=== PATIENT | female | born 1955 ===

== ENCOUNTER 2017-12-11 09:32 | Observation (INO) | payer MEDICAID, OTHER ==
--- NOTE | 2017-12-11 11:04 | ED PDOC ---
HPI: Chest Pain Time Seen by Provider: 12/11/17 09:57 Chief Complaint (Nursing): Chest Pain History Per: Patient Onset/Duration Of Symptoms: Days (2) Current Symptoms Are (Timing): Still Present Severity: Mild Quality: Tightness Associated Symptoms: Dyspnea Alleviating Factors: None Additional Complaint(s): Chest tightness assoc with SOB worse over past 2 days. Denies fever or cough. Pt also very depressed due to recent of her mother. Past Medical History Vital Signs: Last Vital Signs Temp 97 F L 12/11/17 13:08 Pulse 89 12/11/17 13:49 Resp 19 12/11/17 13:49 BP 150/96 H 12/11/17 13:49 Pulse Ox 98 12/11/17 13:49 - Medical History PMH: Asthma, CAD, COPD - Family History Family History: States: Unknown Family Hx - Allergies Allergies/Adverse Reactions: Allergies Allergy/AdvReac Type Severity Reaction Status Date / Time Penicillins Allergy ANAPHYLAXIS Verified 12/11/17 10:05 Review of Systems ROS Statement: Except As Marked, All Systems Reviewed And Found Negative Cardiovascular: Positive for: Chest Pain Respiratory: Positive for: Shortness of Breath Psych: Positive for: Depression Physical Exam - Reviewed Nursing Documentation Reviewed: Yes Vital Signs Reviewed: Yes - Physical Exam Appears: Positive for: Non-toxic, No Acute Distress Head Exam: Positive for: ATRAUMATIC, NORMAL INSPECTION, NORMOCEPHALIC Skin: Positive for: Normal Color, Warm, DRY Eye Exam: Positive for: EOMI, Normal appearance, PERRL ENT: Positive for: Normal ENT Inspection Neck: Positive for: Normal, Painless ROM Cardiovascular/Chest: Positive for: Regular Rate, Rhythm Respiratory: Positive for: CNT, Normal Breath Sounds Gastrointestinal/Abdominal: Positive for: Normal Exam, Soft Back: Positive for: Normal Inspection Extremity: Positive for: Normal ROM Neurologic/Psych: Positive for: Alert, Oriented, Mood/Affect (Tearful). Negative for: Motor/Sensory Deficits - Laboratory Results Result Diagrams: 12/11/17 11:45 12/11/17 11:45 - ECG O2 Sat by Pulse Oximetry: 97 Disposition - Clinical Impression Clinical Impression: Chest pain - Patient ED Disposition Is Patient to be Admitted: Yes - Disposition Disposition Time: 15:01 Condition: FAIR Forms: [employer] (Vietnamese) - Pt Status Changed To: Hospital Disposition Of: Observation - POA Present On Arrival: None
--- NOTE | 2017-12-11 11:49 | RAD ---
HISTORY: Chest pain COMPARISON: No prior. TECHNIQUE: Chest PA and lateral FINDINGS: LUNGS: No focal airspace opacity. PLEURA: No significant pleural effusion identified. No pneumothorax apparent. CARDIOVASCULAR: Normal. OSSEOUS STRUCTURES: Degenerative changes. VISUALIZED UPPER ABDOMEN: Upper abdomen is suboptimally evaluated. OTHER FINDINGS: None. IMPRESSION: No focal airspace opacity. Please note that chest radiographs have low sensitivity for small pulmonary nodules. If indicated, chest CT should be obtained.
[2017-12-11 11:59] LABS: BASO # 0.1 K/uL (0.0-0.2); BASO % 1.1 % (0.0-2.0); EOS # 0.3 K/uL (0.0-0.7); EOS % 4.8 % (0.0-4.0); HEMOGLOBIN 11.9 g/dL (12.0-16.0); LYMPH # 2.3 K/uL (1.0-4.3); LYMPH % 32.3 % (20.0-40.0); MEAN CELL VOLUME 84.6 fl (81.0-99.0); MEAN CORPUSCULAR HEMOGLOBIN 27.1 pg (27.0-31.0); MEAN PLATELET VOLUME 9.4 fl (7.2-11.7); MONO # 0.5 K/uL (0.0-0.8); MONO % 6.4 % (0.0-10.0); NEUT # 3.9 K/uL (1.8-7.0); NEUT % 55.4 % (50.0-75.0); NRBC % 0.1 % (0.0-0.0); RBC 4.4 Mil/uL (3.80-5.20); RED CELL DISTRIBUTION WIDTH 15.9 % (11.5-14.5); WHITE BLOOD COUNT 7.1 K/uL (4.8-10.8)
[2017-12-11 12:03] LABS: ALB/GLOB RATIO 1.3 (1.0-2.1); ALBUMIN 4.1 g/dL (3.5-5.0); ALT/SGPT 22 U/L (9-52); AST/SGOT 22 U/L (14-36); BLOOD UREA NITROGEN 18 mg/dl (7-17); CALCIUM 9.5 mg/dL (8.4-10.2); GFR AFRICAN-AMERICAN > 60; GFR NON-AFRICAN AMERICAN 56
[2017-12-11 22:54] VITALS: RESP 18
[2017-12-12] MEDS ORDERED: Levalbuterol 0.63 MG/3 ML Inhal Soln UD IH PRN (00:24)
[2017-12-12] MEDS ORDERED: Apap-Butalbital-Caffeine 325-50-40mg Tab PO PRN (00:24)
--- NOTE | 2017-12-12 00:41 | CARD ---
APPROVED REPORT Date of service: 12/12/2017 EKG Measurement Heart [id number] <Conclusion> Normal sinus rhythm Normal ECG
[2017-12-12] MEDS: Albuterol-Ipratrop 3 mg / 0.5 (3 ml) UD INH SCH ×3 (01:25→13:37)
[2017-12-12] MEDS: MethylPREDNISolone 40 mg Vial IVP SCH ×2 (02:00→09:28)
[2017-12-12 05:25] VITALS: O2SAT 95
[2017-12-12 05:29] LABS: HEMOGLOBIN 12.5 g/dL (12.0-16.0); MEAN CELL VOLUME 84.9 fl (81.0-99.0); MEAN CORPUSCULAR HEMOGLOBIN 27.6 pg (27.0-31.0); MEAN CORPUSCULAR HGB CONC 32.5 g/dL (33.0-37.0); RBC 4.53 Mil/uL (3.80-5.20); RED CELL DISTRIBUTION WIDTH 16.1 % (11.5-14.5); WHITE BLOOD COUNT 8.5 K/uL (4.8-10.8)
[2017-12-12 05:37] LABS: BLOOD UREA NITROGEN 19 mg/dl (7-17); CALCIUM 9.3 mg/dL (8.4-10.2); GFR AFRICAN-AMERICAN > 60; GFR NON-AFRICAN AMERICAN > 60; HDL CHOLESTEROL 33 MG/DL (30-70)
[2017-12-12 05:42] LABS: ABG ALLEN TEST YES; ARTERIAL BLOOD GAS HCO3 24.5 mmol/L (21-28); ARTERIAL BLOOD GAS HEMOGLOBIN 13.1 g/dL (11.7-17.4); ARTERIAL BLOOD GAS O2 CONTENT 17.3 ML/dL (15-23); ARTERIAL BLOOD GAS O2 SAT 96.3 % (95-98); ARTERIAL BLOOD GAS PCO2 42 mm/Hg (35-45); ARTERIAL BLOOD GAS PH 7.38 (7.35-7.45); ARTERIAL BLOOD GAS PO2 76 mm/Hg (80-100); ARTERIAL BLOOD GAS TCO2 26.1 mmol/L (22-28)
[2017-12-12 05:48] LABS: LDL CHOLESTEROL 39 mg/dL (0-129)
[2017-12-12] MEDS ORDERED: Pneumococcal 23-Valent Vaccine IM ONE (06:30)
[2017-12-12] MEDS ORDERED: Levothyroxine 100 MCG TAB PO SCH (06:30)
[2017-12-12 07:28] LABS: T4 7.36 ug/dl (5.5-11.0)
[2017-12-12 08:23] VITALS: TEMP 97.3
--- NOTE | 2017-12-12 08:51 | CP.PCM.CON ---
History of Present Illness - History of Present Illness History of Present Illness: This 62-year-old female was hospitalized after coming to the emergency room complaining of left pectoral ache. She reports that this has been going on off and on since 1992. She has had 3 coronary angiograms none of them have required any intervention. She was told that her "heart arteries"did not have any blockages. The patient also reports that she used to be a smoker until 4 years back and has effort related dyspnea off and on. She uses broncho-dilators. She also reports being a hypertensive and diabetic and reports chronic sensation of fatigue. This chest discomfort that brought her to the hospital has been going on off and on for almost 3-4 days. It is not connected to any physical activities and does not radiate down her arm or into her jaw. It is not accompanied by any nausea sensation of nausea vomiting or perspiration. Physical examination shows a overweight middle aged female who is comfortable at rest. She breathes at 16 breaths per minute. As a heart rate of 78 bpm regular. Her blood pressure was 138/74 mmHg. Her jugular venous pressure was not elevated and there was no edema over lower extremities. There was no calf tenderness and Homans sign was negative. Pedal pulses were well felt there were no carotid bruits. Her extremities were warm and nailbeds were pink. There was no central or peripheral cyanosis. There was no clubbing. There was a vague sense of tenderness in the left pectoral area. Her apex was not palpable. First and second heart sounds were normal. There was no murmur or gallop. There were no rales. Her abdomen was soft and liver and spleen are not palpable. Her electro-cardial gram showed sinus rhythm with a normal EKG pattern. Her lab data showed normal troponin levels times to 8 hours apart. Her BUN/creatinine were noted. Her serum cholesterol and LDL were noted. The patient had hypertriglyceridemia for which she is taking a fiber rate. Impression: Atypical chest pain with no evidence of acute coronary syndrome. The patient has had 3 coronary angiograms the last one being last year which did not find any significant coronary stenosis. The patient is stable from cardiovascular point of view and can be treated as an outpatient. Also, the patient has been taking numerous medications this polypharmacy may not serve her well in the long run. Past Patient History - Past Medical History & Family History Past Medical History?: Yes - Past Social History Smoking Status: Former Smoker - CARDIAC Hx Cardiac Disorders: Yes Hx Angina: Yes Hx Hypertension: Yes - PULMONARY Hx Respiratory Disorders: Yes Hx Asthma: Yes Hx Chronic Obstructive Pulmonary Disease (COPD): Yes - NEUROLOGICAL Hx Neurological Disorder: No - HEENT Hx HEENT Problems: No - RENAL Hx Chronic Kidney Disease: No - ENDOCRINE/METABOLIC Hx Endocrine Disorders: Yes Hx Diabetes Mellitus Type 2: Yes Hx Hypothyroidism: Yes - HEMATOLOGICAL/ONCOLOGICAL Hx Blood Disorders: No - INTEGUMENTARY Hx Dermatological Problems: No - MUSCULOSKELETAL/RHEUMATOLOGICAL Hx Musculoskeletal Disorders: No Hx Falls: No - GASTROINTESTINAL Hx Gastrointestinal Disorders: No - GENITOURINARY/GYNECOLOGICAL Hx Genitourinary Disorders: No - PSYCHIATRIC Hx Psychophysiologic Disorder: Yes Hx Anxiety: Yes Hx Depression: Yes Hx Substance Use: No - SURGICAL HISTORY Hx Surgeries: Yes Hx Tubal Ligation: Yes Other/Comment: b/l cyst removal from breasts - ANESTHESIA Hx Anesthesia: Yes Hx Anesthesia Reactions: No Hx Malignant Hyperthermia: No Has any member of the family had a problem w/ anesthesia?: No Meds Allergies/Adverse Reactions: Allergies Allergy/AdvReac Type Severity Reaction Status Date / Time Penicillins Allergy ANAPHYLAXIS Verified 12/11/17 10:05 - Medications Medications: Current Medications Acetaminophen/Butalbital/Caffeine (Fioricet) 1 tab PO BID PRN PRN Reason: Migraine headache Albuterol/Ipratropium (Duoneb 3 Mg/0.5 Mg (3 Ml) Ud) 3 ml INH RQ6 [facility] Last Admin: 12/12/17 08:04 Dose: 3 ml Clonazepam (Klonopin) 0.5 mg PO Q8 [facility] Last Admin: 12/12/17 02:00 Dose: 0.5 mg Clonidine HCl (Catapres) 0.3 mg PO DAILY [facility] Clopidogrel Bisulfate (Plavix) 75 mg PO DAILY [facility] Doxepin HCl (Sinequan) 50 mg PO HS [facility] Last Admin: 12/12/17 02:00 Dose: 50 mg Famotidine (Pepcid) 40 mg PO HS [facility] Last Admin: 12/12/17 01:00 Dose: 40 mg Fluticasone Propionate (Flonase) 1 spr RAYMOND BID PRN PRN Reason: Nasal congestion Gabapentin (Neurontin) 400 mg PO QAM [facility] Gabapentin (Neurontin) 800 mg PO HS [facility] Last Admin: 12/12/17 01:00 Dose: 800 mg Gemfibrozil (Lopid) 600 mg PO DAILY [facility] Isosorbide Mononitrate (Imdur Er) 30 mg PO DAILY [facility] Levalbuterol HCl (Xopenex) 0.63 mg IH RQ8 PRN PRN Reason: Shortness of Breath Levothyroxine Sodium (Synthroid) 100 mcg PO DAILY@0630 [facility] Last Admin: 12/12/17 07:32 Dose: 100 mcg Loratadine (Claritin) 10 mg PO DAILY [facility] Losartan Potassium (Cozaar) 100 mg PO DAILY [facility] Methylprednisolone (Solu-Medrol) 30 mg IVP Q8 [facility] Last Admin: 12/12/17 02:00 Dose: 30 mg Montelukast Sodium (Singulair) 10 mg PO HS [facility] Last Admin: 12/12/17 01:00 Dose: 10 mg Qloyd-4-Yyve Ethyl Esters (Lovaza) 1 gm PO DAILY [facility] Quetiapine Fumarate (Seroquel) 100 mg PO HS [facility] Last Admin: 12/12/17 02:37 Dose: Not Given Fluticasone/Salmeterol (Advair Diskus 250/50) 1 puff IH Q12 [facility] Sertraline HCl (Zoloft) 50 mg PO QAM [facility] Sucralfate (Carafate Tab) 1 gm PO TID [facility] Results - Vital Signs Recent Vital Signs: Last Vital Signs Temp 97.3 F L 12/12/17 08:22 Pulse 83 12/12/17 08:22 Resp 18 12/12/17 08:22 BP 124/85 12/12/17 08:22 Pulse Ox 95 12/12/17 08:22 - Labs Result Diagrams: 12/12/17 04:20 12/12/17 04:20 Labs: Laboratory Results - last 24 hr 12/11/17 12/11/17 12/12/17 11:45 11:45 04:20 WBC 7.1 8.5 RBC 4.40 4.53 Hgb 11.9 L 12.5 Hct 37.2 38.5 MCV 84.6 84.9 MCH 27.1 27.6 MCHC 32.0 L 32.5 L RDW 15.9 H 16.1 H Plt Count 294 295 MPV 9.4 Neut % (Auto) 55.4 Lymph % (Auto) 32.3 Granite % (Auto) 6.4 Eos % (Auto) 4.8 H Baso % (Auto) 1.1 Neut # (Auto) 3.9 Lymph # (Auto) 2.3 Granite # (Auto) 0.5 Eos # (Auto) 0.3 Baso # (Auto) 0.1 pCO2 pO2 HCO3 ABG pH ABG Total CO2 ABG O2 Saturation ABG O2 Content ABG Base Excess ABG Hemoglobin ABG Carboxyhemoglobin POC ABG HHb (Measured) ABG Methemoglobin ABG O2 Capacity Med Test A-a O2 Difference Hgb O2 Saturation FiO2 Sodium 143 Potassium 4.4 Chloride 107 Carbon Dioxide 24 Anion Gap 16 BUN 18 H Creatinine 1.0 Est GFR ( Amer) > 60 Est GFR (Non-Af Amer) 56 POC Glucose (mg/dL) Random Glucose 96 Calcium 9.5 Total Bilirubin 0.3 AST 22 ALT 22 Alkaline Phosphatase 61 Troponin I < 0.0120 Total Protein 7.3 Albumin 4.1 Globulin 3.2 Albumin/Globulin Ratio 1.3 Triglycerides Cholesterol LDL Cholesterol Direct HDL Cholesterol Thyroxine (T4) TSH 3rd Generation 12/12/17 12/12/17 12/12/17 04:20 05:18 05:30 WBC RBC Hgb Hct MCV MCH MCHC RDW Plt Count MPV Neut % (Auto) Lymph % (Auto) Granite % (Auto) Eos % (Auto) Baso % (Auto) Neut # (Auto) Lymph # (Auto) Granite # (Auto) Eos # (Auto) Baso # (Auto) pCO2 42 pO2 76 L HCO3 24.5 ABG pH 7.38 ABG Total CO2 26.1 ABG O2 Saturation 96.3 ABG O2 Content 17.3 ABG Base Excess -0.4 ABG Hemoglobin 13.1 ABG Carboxyhemoglobin 1.3 POC ABG HHb (Measured) 3.6 ABG Methemoglobin 1.4 ABG O2 Capacity 18.0 Med Test Yes A-a O2 Difference 71.0 Hgb O2 Saturation 93.8 L FiO2 28.0 Sodium 141 Potassium 4.6 Chloride 106 Carbon Dioxide 23 Anion Gap 17 BUN 19 H Creatinine 0.9 Est GFR ( Amer) > 60 Est GFR (Non-Af Amer) > 60 POC Glucose (mg/dL) 129 H Random Glucose 116 H Calcium 9.3 Total Bilirubin AST ALT Alkaline Phosphatase Troponin I < 0.0120 Total Protein Albumin Globulin Albumin/Globulin Ratio Triglycerides 295 H Cholesterol 178 LDL Cholesterol Direct 39 HDL Cholesterol 33 Thyroxine (T4) 7.36 TSH 3rd Generation 1.57
[2017-12-12] MEDS ORDERED: Fluticasone-Salmeterol 250-50mcg Diskus IH SCH (09:00)
[2017-12-12] MEDS ORDERED: Omega-3-Acid Ethyl Esters 1 GM Cap PO SCH (09:00)
[2017-12-12 09:36] VITALS: BP 132/86; PULSE 98
--- NOTE | 2017-12-12 15:35 | CP.PCM.HP ---
History of Present Illness - History of Present Illness History of Present Illness: 62 y/o F, Hx of Asthma, CAD, HTN, came to [facility], [place] to be evaluated for CP, left pectoral that began 3 days [employer] with no relief, Pain was intermittent, moderate intensity 7:10, ache, tightness type, non radiated. Worsening symptoms: Dyspnea on and off, denied cough Aggravated factor: movements/exercise. Pt denied: fever, chills, n/v/d, abdominal pain, urinary symptoms, tachycardia , syncope, numbness, sick contact, recent travel out of [facility]. CXR: No focal airspace opacity. Echo: LVEF 70% EKG: Normal sinus rhythm Present on Admission - Present on Admission Any Indicators Present on Admission: No Review of Systems - Constitutional Constitutional: Other (negative) - EENT Eyes: Requires Corrective Lenses Ears: Other (negative) Nose/Mouth/Throat: Other (negative) - Cardiovascular Cardiovascular: Chest Pain - Respiratory Respiratory: Dyspnea. absent: Cough - Gastrointestinal Gastrointestinal: Other (negative) - Genitourinary Genitourinary: Other (negative) - Musculoskeletal Musculoskeletal: Other (negative) - Integumentary Integumentary: Other (negative) - Neurological Neurological: Other (negative) - Psychiatric Psychiatric: Other (negative) - Endocrine Endocrine: Other (negative) - Hematologic/Lymphatic Hematologic: Other (negative) Past Patient History - Past Medical History & Family History Past Medical History?: Yes Pertinent Family History: Unknown - Past Social History Smoking Status: Former Smoker Alcohol: None Drugs: Denies - CARDIAC Hx Cardiac Disorders: Yes Hx Angina: Yes Hx Hypertension: Yes - PULMONARY Hx Respiratory Disorders: Yes Hx Asthma: Yes Hx Chronic Obstructive Pulmonary Disease (COPD): Yes - NEUROLOGICAL Hx Neurological Disorder: No - HEENT Hx HEENT Problems: No - RENAL Hx Chronic Kidney Disease: No - ENDOCRINE/METABOLIC Hx Endocrine Disorders: Yes Hx Diabetes Mellitus Type 2: Yes Hx Hypothyroidism: Yes - HEMATOLOGICAL/ONCOLOGICAL Hx Blood Disorders: No - INTEGUMENTARY Hx Dermatological Problems: No - MUSCULOSKELETAL/RHEUMATOLOGICAL Hx Musculoskeletal Disorders: No Hx Falls: No - GASTROINTESTINAL Hx Gastrointestinal Disorders: No - GENITOURINARY/GYNECOLOGICAL Hx Genitourinary Disorders: No - PSYCHIATRIC Hx Psychophysiologic Disorder: Yes Hx Anxiety: Yes Hx Depression: Yes Hx Substance Use: No - SURGICAL HISTORY Hx Surgeries: Yes Hx Tubal Ligation: Yes Other/Comment: b/l cyst removal from breasts - ANESTHESIA Hx Anesthesia: Yes Hx Anesthesia Reactions: No Hx Malignant Hyperthermia: No Has any member of the family had a problem w/ anesthesia?: No Meds Allergies/Adverse Reactions: Allergies Allergy/AdvReac Type Severity Reaction Status Date / Time Penicillins Allergy ANAPHYLAXIS Verified 12/11/17 10:05 Physical Exam - Constitutional Appears: No Acute Distress - Head Exam Head Exam: NORMAL INSPECTION - Eye Exam Eye Exam: PERRL - ENT Exam ENT Exam: Normal Exam - Neck Exam Neck exam: Positive for: Normal Inspection - Respiratory Exam Respiratory Exam: Decreased Breath Sounds (b/l) - Cardiovascular Exam Cardiovascular Exam: REGULAR RHYTHM - GI/Abdominal Exam GI & Abdominal Exam: Normal Bowel Sounds, Soft - Extremities Exam Extremities exam: Positive for: normal inspection - Back Exam Back exam: NORMAL INSPECTION - Neurological Exam Neurological exam: Alert, Oriented x3 Additional comments: No motor/sensory deficit. - Psychiatric Exam Psychiatric exam: Depressed - Skin Skin Exam: Warm Results - Vital Signs Recent Vital Signs: Last Vital Signs Temp 97.3 F L 12/12/17 08:22 Pulse 98 H 12/12/17 09:35 Resp 18 12/12/17 08:22 BP 132/86 12/12/17 09:35 Pulse Ox 95 12/12/17 08:22 reviewed Gaye - Labs Result Diagrams: 12/12/17 04:20 12/12/17 04:20 Labs: Laboratory Results - last 24 hr 12/12/17 12/12/17 12/12/17 04:20 04:20 04:20 WBC 8.5 RBC 4.53 Hgb 12.5 Hct 38.5 MCV 84.9 MCH 27.6 MCHC 32.5 L RDW 16.1 H Plt Count 295 pCO2 pO2 HCO3 ABG pH ABG Total CO2 ABG O2 Saturation ABG O2 Content ABG Base Excess ABG Hemoglobin ABG Carboxyhemoglobin POC ABG HHb (Measured) ABG Methemoglobin ABG O2 Capacity Med Test A-a O2 Difference Hgb O2 Saturation FiO2 Sodium 141 Potassium 4.6 Chloride 106 Carbon Dioxide 23 Anion Gap 17 BUN 19 H Creatinine 0.9 Est GFR ( Amer) > 60 Est GFR (Non-Af Amer) > 60 POC Glucose (mg/dL) Random Glucose 116 H Hemoglobin A1c 6.3 Calcium 9.3 Troponin I < 0.0120 Triglycerides 295 H Cholesterol 178 LDL Cholesterol Direct 39 HDL Cholesterol 33 Thyroxine (T4) 7.36 TSH 3rd Generation 1.57 12/12/17 12/12/17 12/12/17 05:18 05:30 10:48 WBC RBC Hgb Hct MCV MCH MCHC RDW Plt Count pCO2 42 pO2 76 L HCO3 24.5 ABG pH 7.38 ABG Total CO2 26.1 ABG O2 Saturation 96.3 ABG O2 Content 17.3 ABG Base Excess -0.4 ABG Hemoglobin 13.1 ABG Carboxyhemoglobin 1.3 POC ABG HHb (Measured) 3.6 ABG Methemoglobin 1.4 ABG O2 Capacity 18.0 Med Test Yes A-a O2 Difference 71.0 Hgb O2 Saturation 93.8 L FiO2 28.0 Sodium Potassium Chloride Carbon Dioxide Anion Gap BUN Creatinine Est GFR ( Amer) Est GFR (Non-Af Amer) POC Glucose (mg/dL) 129 H 205 H Random Glucose Hemoglobin A1c Calcium Troponin I Triglycerides Cholesterol LDL Cholesterol Direct HDL Cholesterol Thyroxine (T4) TSH 3rd Generation 12/12/17 12:27 WBC RBC Hgb Hct MCV MCH MCHC RDW Plt Count pCO2 pO2 HCO3 ABG pH ABG Total CO2 ABG O2 Saturation ABG O2 Content ABG Base Excess ABG Hemoglobin ABG Carboxyhemoglobin POC ABG HHb (Measured) ABG Methemoglobin ABG O2 Capacity Med Test A-a O2 Difference Hgb O2 Saturation FiO2 Sodium Potassium Chloride Carbon Dioxide Anion Gap BUN Creatinine Est GFR ( Amer) Est GFR (Non-Af Amer) POC Glucose (mg/dL) Random Glucose Hemoglobin A1c Calcium Troponin I < 0.0120 Triglycerides Cholesterol LDL Cholesterol Direct HDL Cholesterol Thyroxine (T4) TSH 3rd Generation reviewed J.P. - EKG Data EKG comments: reviewed J.P. - Impressions Impression: ECHO: Reviewed J.P. - Imaging and Cardiology Chest x-ray Status: Report reviewed by me (Gaye) Assessment & Plan (1) Chest pain, atypical Status: Acute (2) Active asthma Status: Acute - Assessment and Plan (Free Text) Plan: Continue Solu-medrol, Duoneb, Singulair, rest of medications, Pt was seen by lifestyle consultant, with impression of CP atypical, and no evidence of acute coronary syndrome, Cardiology clear for discharge and to continue Tx as out Pt. Pt improved and stable to be discharged, see instruction medication sheet, f/ u PMD in a week and f/u with lifestyle consultant. - Date & Time Date: 12/12/17 Time: 12:00
--- NOTE | 2017-12-13 11:24 | CARD ---
APPROVED REPORT Date of service: 12/12/2017 EXAM: Two-dimensional and M-mode echocardiogram with Doppler and color Doppler. Other Information Quality : FairRhythm : Tachycardia Technically limited study due to smoking. INDICATION Chest Pain 2D DIMENSIONS IVSd0.77 (0.7-1.1cm)LVDd4.05 (3.9-5.9cm) LVOT Diameter1.67 (1.8-2.4cm)PWd0.86 (0.7-1.1cm) IVSs1.18 (0.8-1.2cm)LVDs2.24 (2.5-4.0cm) FS (%) 44.6 %PWs1.08 (0.8-1.2cm) M-Mode DIMENSIONS Left Atrium (MM)3.69 (2.5-4.0cm)IVSd1.03 (0.7-1.1cm) Aortic Root2.97 (2.2-3.7cm)LVDd4.59 (4.0-5.6cm) Aortic Cusp Exc.2.13 (1.5-2.0cm)PWd0.81 (0.7-1.1cm) IVSs1.78 cmFS (%) 59 % LVDs1.91 (2.0-3.8cm)PWs1.25 cm Aortic Valve AoV Peak Gdiotzny474.0cm/sAoV VTI23.6cmAO Peak GR.7mmHg LVOT Peak Lezpitgq281.4cm/sLVOT VTI22.61cmAO Mean GR.4mmHg MIKKI (VMAX)1.40wu2EZU (VTI)1.15cm2 Mitral Valve MV E Qaviavfk96.5cm/sMV DECEL [id number] A Zfqidcik06.8cm/s MV ZWE63eiW/A ratio0.6MVA (PHT)4.47cm2 TDI Lateral E' Peak V7.74cm/sMedial E' Peak V5.21cm/sE/Lateral E'5.7 E/Medial E'8.5 Pulmonary Valve PV Peak Wsxsxlqm109.6cm/s LEFT VENTRICLE The left ventricle is normal size. There is borderline concentric left ventricular hypertrophy. The left ventricle is hyperdynamic. The Ejection Fraction is >70%. There is normal LV segmental wall motion. Transmitral Doppler flow pattern is Grade I-abnormal relaxation pattern. RIGHT VENTRICLE The right ventricle is normal size. The right ventricular systolic function is normal. ATRIA The left atrium size is normal. The right atrium size is normal. AORTIC VALVE The aortic valve is normal in structure. No aortic regurgitation is present. There is no aortic valvular stenosis. MITRAL VALVE The mitral valve is normal in structure. There is no mitral valve stenosis. Mitral regurgitation is trace. TRICUSPID VALVE The tricuspid valve is normal in structure. There is mild tricuspid regurgitation. PULMONIC VALVE The pulmonic valve is not well visualized. There is no pulmonic valvular regurgitation. GREAT VESSELS The aortic root is normal in size. The IVC is normal in size and collapses >50% with inspiration. PERICARDIAL EFFUSION The pericardium appears normal. <Conclusion> The left ventricle is hyperdynamic. The Ejection Fraction is >70%. Transmitral Doppler flow pattern is Grade I-abnormal relaxation pattern. Mitral regurgitation is trace. There is mild tricuspid regurgitation.
== END 2017-12-12 14:36 | disposition home or self-care (01) ==
LOC: H.ER 09:32 → H.ERHOLD 18:26 → H.TEL 23:10
PROVIDERS: ADMIT Internal Medicine Pulmonary Disease; ATTEND Internal Medicine Pulmonary Disease
DX: R07.89 Other chest pain (principal); E78.1 Pure hyperglyceridemia; E66.3 Overweight; Z68.34 Body mass index [BMI] 34.0-34.9, adult; Z88.0 Allergy status to penicillin; Z23 Encounter for immunization; I25.10 Atherosclerotic heart disease of native coronary artery without angina pectoris; Z98.61 Coronary angioplasty status; Z87.891 Personal history of nicotine dependence; J44.9 Chronic obstructive pulmonary disease, unspecified; F32.9 Major depressive disorder, single episode, unspecified; F41.9 Anxiety disorder, unspecified; I10 Essential (primary) hypertension; E03.9 Hypothyroidism, unspecified
CPT/HCPCS: 36415; 71046; 80048; 80053; 80061; 82803; 82948; 83036; 84436; 84443; 84484; 85025; 85027; 90471; 90732; 93005; 93306; 94640; 99285; G0378; J2920

== ENCOUNTER 2018-01-03 10:22 | Emergency (ER) | payer MEDICAID, OTHER ==
[2018-01-03 10:25] VITALS: BMI 33.8
[2018-01-03 10:28] VITALS: TEMP 97.9
--- NOTE | 2018-01-03 11:27 | ED PDOC ---
HPI: General Adult Time Seen by Provider: 01/03/18 10:50 Chief Complaint (Nursing): Anxiety History Per: Patient, Residential Glazier ([id number]) Additional Complaint(s): Pt. states she depleted her supply of Catapres 0.3mg daily and Synthroid 100mcg daily 3 days ago. States she just moved here from here from [place] last month. States that she has all her other medications including Plavix. States she is scared that she will not be able to get her medications to take. Of note , pt. also reports that she has been increasing the Catapres to BID as she feels her BP is elevated at night as well but was not directed to by her doctor. Has no complaints at this time. Denies chest pain, SOB. Past Medical History Reviewed: Historical Data, Nursing Documentation, Vital Signs Vital Signs: Last Vital Signs Temp 97.9 F 01/03/18 10:25 Pulse 83 01/03/18 10:25 Resp 20 01/03/18 10:25 BP 120/86 01/03/18 10:25 Pulse Ox 98 01/03/18 11:45 - Medical History PMH: Anxiety, Asthma, CAD, COPD, Depression, HTN, Hypothyroidism Denies: Chronic Kidney Disease - Surgical History Surgical History: No Surg Hx - Family History Family History: States: No Known Family Hx - Home Medications Home Medications: Ambulatory Orders Medication Instructions Recorded Acetaminophen/Butalbital/Caf 1 tab PO BID PRN 12/11/17 [Fioricet] Clopidogrel [Plavix] 75 mg PO DAILY 12/11/17 Doxepin HCl 50 mg PO HS 12/11/17 Fluticasone Nasal [Flonase] 1 spray RAYMOND BID PRN 12/11/17 Fluticasone/Salmeterol 250/50 1 puff IH Q12 12/11/17 [Advair Diskus 250/50] Gabapentin [Neurontin] 400 mg PO QAM 12/11/17 Gabapentin [Neurontin] 800 mg PO HS 12/11/17 Gemfibrozil [Lopid] 600 mg PO DAILY 12/11/17 Irbesartan [Avapro] 300 mg PO DAILY 12/11/17 Isosorbide Mononitrate ER [Imdur 30 mg PO DAILY 12/11/17 ER] Levalbuterol [Xopenex] 3 ml IH Q8 PRN 12/11/17 Levothyroxine [Synthroid] 100 mcg PO DAILY 12/11/17 Loratadine [Claritin] 10 mg PO DAILY 12/11/17 Montelukast [Singulair] 10 mg PO HS 12/11/17 [place]-3 Fatty Acids/Fish Oil 1 cap PO DAILY 12/11/17 [[place]-3 1,000 mg Softgel] QUEtiapine [Seroquel] 100 mg PO HS 12/11/17 Ranitidine HCl [Zantac] 300 mg PO HS 12/11/17 Sertraline [Zoloft] 50 mg PO QAM 12/11/17 Sucralfate [Carafate Tab] 1 gm PO TID 12/11/17 cloNIDine [Catapres] 0.3 mg PO DAILY 12/11/17 clonazePAM [Klonopin] 0.5 mg PO Q8 12/11/17 Levothyroxine [Synthroid] 100 mcg PO DAILY #7 tab 01/03/18 cloNIDine [Catapres] 0.3 mg PO DAILY #7 tab 01/03/18 - Allergies Allergies/Adverse Reactions: Allergies Allergy/AdvReac Type Severity Reaction Status Date / Time Penicillins Allergy ANAPHYLAXIS Verified 01/03/18 10:50 Review of Systems ROS Statement: Except As Marked, All Systems Reviewed And Found Negative Physical Exam - Physical Exam Appears: Positive for: Well, Non-toxic, No Acute Distress Skin: Positive for: Normal Color, Warm. Negative for: Rash Eye Exam: Positive for: Normal appearance Cardiovascular/Chest: Positive for: Regular Rate, Rhythm Respiratory: Positive for: Normal Breath Sounds. Negative for: Respiratory Distress Neurologic/Psych: Positive for: Alert, Oriented. Negative for: Aphasia, Facial Droop - ECG O2 Sat by Pulse Oximetry: 98 Disposition - Clinical Impression Clinical Impression: Medication refill - Patient ED Disposition Is Patient to be Admitted: No - Disposition Referrals: [facility] [Outside] Disposition: Routine/Home Disposition Time: 11:26 Condition: STABLE Additional Instructions: DEVON CARNEY, thank you for letting us take care of you today. Your provider was Orlando Shah MD and you were treated for POSS HBP. The emergency medical care you received today was directed at your acute symptoms. If you were prescribed any medication, please fill it and take as directed. It may take several days for your symptoms to resolve. Return to the Emergency Department if your symptoms worsen, do not improve, or if you have any other problems. Please contact your doctor or call one of the physicians/clinics you have been referred to that are listed on the Patient Visit Information form that is included in your discharge packet. Bring any paperwork you were given at discharge with you along with any medications you are taking to your follow up visit. Our treatment cannot replace ongoing medical care by a primary care provider outside of the emergency department. Thank you for allowing the [facility] team to be part of your care today. If you had an X-Ray or CT scan: A Radiologist will review the ED reading if any change in treatment is needed we will contact you. If you had a blood, urine, or wound culture: It will take several days for the results, if any change in treatment is needed we will contact you. If you had an STI test: It will take 48 hours for the results. Please call after 1 week if you have not heard back. Prescriptions: cloNIDine [Catapres] 0.3 mg PO DAILY #7 tab Levothyroxine [Synthroid] 100 mcg PO DAILY #7 tab Instructions: Where to Get Help Paying for Your Prescriptions Print Language: SAMMARINESE
[2018-01-03 11:49] VITALS: BP 118/76; PULSE 76; RESP 18
[2018-01-03 11:50] VITALS: O2SAT 98
== END 2018-01-03 11:50 | disposition home or self-care (01) ==
LOC: H.ER 10:22
DX: Z76.0 Encounter for issue of repeat prescription (principal); Z79.02 Long term (current) use of antithrombotics/antiplatelets

== ENCOUNTER 2018-01-17 10:12 | Emergency (ER) | payer OTHER, MEDICAID ==
[2018-01-17 10:13] VITALS: BMI 33.8
[2018-01-17 11:09] LABS: BASO # 0.1 K/uL (0.0-0.2); BASO % 0.9 % (0.0-2.0); EOS # 0.2 K/uL (0.0-0.7); EOS % 2.6 % (0.0-4.0); HEMOGLOBIN 13.5 g/dL (12.0-16.0); LYMPH # 2.4 K/uL (1.0-4.3); LYMPH % 29.2 % (20.0-40.0); MEAN CELL VOLUME 83.2 fl (81.0-99.0); MEAN CORPUSCULAR HEMOGLOBIN 27.5 pg (27.0-31.0); MEAN CORPUSCULAR HGB CONC 33.1 g/dL (33.0-37.0); MEAN PLATELET VOLUME 9.2 fl (7.2-11.7); MONO # 0.5 K/uL (0.0-0.8); MONO % 5.5 % (0.0-10.0); NEUT # 5.1 K/uL (1.8-7.0); NEUT % 61.8 % (50.0-75.0); NRBC % 0.3 % (0.0-0.0); RBC 4.9 Mil/uL (3.80-5.20); RED CELL DISTRIBUTION WIDTH 14.4 % (11.5-14.5); WHITE BLOOD COUNT 8.3 K/uL (4.8-10.8)
[2018-01-17 11:11] LABS: ALB/GLOB RATIO 1.2 (1.0-2.1); ALBUMIN 4.2 g/dL (3.5-5.0); ALT/SGPT 24 U/L (9-52); AST/SGOT 18 U/L (14-36); BLOOD UREA NITROGEN 15 mg/dl (7-17); CALCIUM 9.4 mg/dL (8.4-10.2); GFR AFRICAN-AMERICAN > 60; GFR NON-AFRICAN AMERICAN 50
--- NOTE | 2018-01-17 11:23 | ED PDOC ---
HPI: General Adult Time Seen by Provider: 01/17/18 10:26 Chief Complaint (Nursing): High Blood Pressure Chief Complaint (Provider): High Blood Pressure History Per: Patient History/Exam Limitations: no limitations Onset/Duration Of Symptoms: Hrs Additional Complaint(s): 63 year old female with past medical history of COPD, asthma and mental problems presents to the ED for an evaluation of high blood pressure. Patient states she takes Catapres 0.3mg which has finished. Also states her appetite is low and she has not been able to sleep well at her brothers house who she lives with. Patient is depressed currently. Denies suicidal or homicidal ideation. PMD: Non [facility] Provider Past Medical History Reviewed: Historical Data, Nursing Documentation, Vital Signs Vital Signs: Last Vital Signs Temp 98.4 F 01/17/18 10:28 Pulse 97 H 01/17/18 13:53 Resp 18 01/17/18 13:53 BP 177/102 H 01/17/18 13:53 Pulse Ox 96 01/17/18 13:53 - Medical History PMH: Anxiety, Asthma, CAD, COPD, Depression, HTN, Hypothyroidism Denies: Chronic Kidney Disease - Surgical History Other surgeries: lumpectomy - Family History Family History: States: Unknown Family Hx - Social History Ex-Smoker (has not smoked in the last 12 months): Yes - Home Medications Home Medications: Ambulatory Orders Medication Instructions Recorded Acetaminophen/Butalbital/Caf 1 tab PO BID PRN 12/11/17 [Fioricet] Clopidogrel [Plavix] 75 mg PO DAILY 12/11/17 Doxepin HCl 50 mg PO HS 12/11/17 Fluticasone Nasal [Flonase] 1 spray RAYMOND BID PRN 12/11/17 Fluticasone/Salmeterol 250/50 1 puff IH Q12 12/11/17 [Advair Diskus 250/50] Gabapentin [Neurontin] 400 mg PO QAM 12/11/17 Gabapentin [Neurontin] 800 mg PO HS 12/11/17 Gemfibrozil [Lopid] 600 mg PO DAILY 12/11/17 Irbesartan [Avapro] 300 mg PO DAILY 12/11/17 Isosorbide Mononitrate ER [Imdur 30 mg PO DAILY 12/11/17 ER] Levalbuterol [Xopenex] 3 ml IH Q8 PRN 12/11/17 Levothyroxine [Synthroid] 100 mcg PO DAILY 12/11/17 Loratadine [Claritin] 10 mg PO DAILY 12/11/17 Montelukast [Singulair] 10 mg PO HS 12/11/17 [place]-3 Fatty Acids/Fish Oil 1 cap PO DAILY 12/11/17 [[place]-3 1,000 mg Softgel] QUEtiapine [Seroquel] 100 mg PO HS 12/11/17 Ranitidine HCl [Zantac] 300 mg PO HS 12/11/17 Sertraline [Zoloft] 50 mg PO QAM 12/11/17 Sucralfate [Carafate Tab] 1 gm PO TID 12/11/17 cloNIDine [Catapres] 0.3 mg PO DAILY 12/11/17 clonazePAM [Klonopin] 0.5 mg PO Q8 12/11/17 Gabapentin 400 mg PO TID #90 capsule 01/17/18 Gemfibrozil 600 mg PO BID #60 tablet 01/17/18 Isosorbide Dinitrate [Isosorbide 40 mg PO DAILY #30 tablet.er 01/17/18 Dinitrate ER] Levothyroxine [Synthroid] 0.1 mg PO DAILY #30 tab 01/17/18 - Allergies Allergies/Adverse Reactions: Allergies Allergy/AdvReac Type Severity Reaction Status Date / Time Penicillins Allergy ANAPHYLAXIS Verified 01/17/18 10:28 Review of Systems ROS Statement: Except As Marked, All Systems Reviewed And Found Negative Respiratory: Negative for: Cough, Shortness of Breath Psych: Positive for: Depression. Negative for: Suicidal ideation (homicidal ideation) Physical Exam - Reviewed Nursing Documentation Reviewed: Yes Vital Signs Reviewed: Yes - Physical Exam Appears: Positive for: Non-toxic, No Acute Distress Head Exam: Positive for: ATRAUMATIC, NORMAL INSPECTION, NORMOCEPHALIC Skin: Positive for: Normal Color, Warm, Dry Eye Exam: Positive for: Normal appearance, EOMI, PERRL ENT: Positive for: Normal ENT Inspection Neck: Positive for: Normal, Painless ROM, Supple. Negative for: Decreased ROM Cardiovascular/Chest: Positive for: Regular Rate, Rhythm. Negative for: Murmur Respiratory: Positive for: Normal Breath Sounds. Negative for: Decreased Breath Sounds, Wheezing, Respiratory Distress Gastrointestinal/Abdominal: Positive for: Normal Exam, Bowel Sounds, Soft. Negative for: Tenderness, Guarding, Rebound Back: Positive for: Normal Inspection Extremity: Positive for: Normal ROM. Negative for: Tenderness, Pedal Edema, Deformity Neurologic/Psych: Positive for: Alert, Oriented (x3). Negative for: Motor/ Sensory Deficits - Laboratory Results Result Diagrams: 01/17/18 10:45 01/17/18 10:45 - ECG O2 Sat by Pulse Oximetry: 99 (RA) Pulse Ox Interpretation: Normal Medical Decision Making Medical Decision Making: Time: 1045 Initial Plan: --EKG --CMP --TSH --CBC w/ Differential --Bandoleer Packer --IV Insertion --Reevaluation Scribe Attestation: Documented by Mansoor Arreola, acting as a scribe for Maureen Canas MD Provider Scribe Attestation: All medical record entries made by the Scribe were at my direction and personally dictated by me. I have reviewed the chart and agree that the record accurately reflects my personal performance of the history, physical exam, medical decision making, and the department course for this patient. I have also personally directed, reviewed, and agree with the discharge instructions and disposition. Disposition - Clinical Impression Clinical Impression: Hypertension - Patient ED Disposition Is Patient to be Admitted: No Doctor Will See Patient In The: Office Counseled Patient/Family Regarding: Diagnosis, Need For Followup, Rx Given - Disposition Referrals: Tova Solares MD [Medical Doctor] - Disposition: Routine/Home Disposition Time: 14:25 Condition: STABLE Prescriptions: Gabapentin 400 mg PO TID #90 capsule Gemfibrozil 600 mg PO BID #60 tablet Isosorbide Dinitrate [Isosorbide Dinitrate ER] 40 mg PO DAILY #30 tablet.er Levothyroxine [Synthroid] 0.1 mg PO DAILY #30 tab Instructions: High Blood Pressure in Adults Forms: [employer] (Faroese) Print Language: PERSIAN - POA Present On Arrival: None
[2018-01-17 15:39] VITALS: BP 148/107; PULSE 64; RESP 20; TEMP 97.7; O2SAT 98
--- NOTE | 2018-01-17 18:40 | CARD ---
APPROVED REPORT Date of service: 01/17/2018 <Conclusion> Normal sinus rhythm Normal EKG.
== END 2018-01-17 15:45 | disposition home or self-care (01) ==
LOC: H.ER 10:12
DX: I10 Essential (primary) hypertension (principal); E03.9 Hypothyroidism, unspecified; I25.10 Atherosclerotic heart disease of native coronary artery without angina pectoris; J44.9 Chronic obstructive pulmonary disease, unspecified; Z88.0 Allergy status to penicillin

== ENCOUNTER 2018-02-27 14:28 | Inpatient (IN) | payer MEDICAID ==
[2018-02-27 15:48] LABS: BASO # 0.1 K/uL (0.0-0.2); BASO % 0.8 % (0.0-2.0); EOS # 0.1 K/uL (0.0-0.7); EOS % 0.6 % (0.0-4.0); HEMOGLOBIN 14.3 g/dL (12.0-16.0); LYMPH # 1.8 K/uL (1.0-4.3); LYMPH % 14.3 % (20.0-40.0); MEAN CORPUSCULAR HEMOGLOBIN 27.1 pg (27.0-31.0); MEAN CORPUSCULAR HGB CONC 32.2 g/dL (33.0-37.0); MEAN PLATELET VOLUME 9.4 fl (7.2-11.7); MONO # 0.8 K/uL (0.0-0.8); MONO % 6.3 % (0.0-10.0); NEUT # 9.6 K/uL (1.8-7.0); NRBC % 0.1 % (0.0-0.0); RBC 5.26 Mil/uL (3.80-5.20); RED CELL DISTRIBUTION WIDTH 15.4 % (11.5-14.5); WHITE BLOOD COUNT 12.3 K/uL (4.8-10.8)
[2018-02-27 16:33] VITALS: BMI 25.7
[2018-02-27 16:57] LABS: BLOOD UREA NITROGEN 27 mg/dl (7-17); GFR NON-AFRICAN AMERICAN 45
[2018-02-27 16:59] LABS: CALCIUM 10.3 mg/dL (8.4-10.2)
[2018-02-27 17:00] LABS: BARBITURATES, UR NEGATIVE (NEGATIVE); BENZODIAZEPINES, UR NEGATIVE (NEGATIVE); OPIATES, UR NEGATIVE (NEGATIVE); PHENCYCLIDINE, UR NEGATIVE (NEGATIVE)
[2018-02-27 20:38] VITALS: O2SAT 99
[2018-02-27] MEDS ORDERED: Bismuth Subsalicylate 262 mg/15 ml Sus (240 ml) PO PRN (20:56)
[2018-02-27] MEDS ORDERED: Alum-Mag Hydrox-Simethicone Susp (30 mL) PO PRN (20:56)
[2018-02-27] MEDS ORDERED: Magnesium Hydroxide Susp 30 ml UD PO PRN (20:56)
--- NOTE | 2018-02-27 22:33 | PCM.BM ---
<Kiran Malagon T - Last Filed: 02/27/18 22:31> Treatment Plan Problems - Problems identified on initial assessmt Hopelessness/Helplessness Date Initiated: 02/27/18 Time Initiated: 22:31 Assessment reference: NA Status: Active Altered Sleep Patterns Date Initiated: 02/27/18 Time Initiated: 22:32 Assessment reference: NA Status: Active Medication nonadherence Date Initiated: 02/27/18 Time Initiated: 22:32 Assessment reference: NA Status: Active Treatment assets and liabiliti Patient Assests: cooperative, good support system, negotiates basic needs Patient Liabilities: language/speech - Milieu Protocol Maintain good personal hygiene: every shift Encourage regular showers, every shift Remind patient to perform daily oral care, every shift Assist patient to perform ADL's Conduct patient checks and document Observation sheet: Q15 minutes Maintain personal safety: every shift Educate patient to report safety concerns to staff, every shift Monitor environment for contraband/sharps Medication safety: Monitor for expected outcome, potential side effects: every shift, Assess barriers to learning: every shift, Assess readiness for medication education: every shift <Paige Kapoor - Last Filed: 02/28/18 11:32> - Diagnosis (1) Major depressive disorder with psychotic features Status: Acute Interventions: Medication management, Individual and group therapy, Psychoeducation 02/28/18 11:32 <Lorena De La Garza M - Last Filed: 03/01/18 10:38> Family Contact Family involvement: Family/SO is involved Family contact: Patient agrees to contact, Family has been contacted by patient, Telephone contact initiated by staff Family contact name: Rishabh - brother Family contacted how many times per week?: 2 Family contact comment: [phone] - Goals for Treatment Patient goals for treatment: Pt to be encouraged to attend activity and clinical groups 3-5x per week to identify at least 2 contributing factors to depression and suicide attempt. Psycho-education to be provided to patient/family regarding benefits of medications and treatment adherence. Pt to be encouraged to participate in group milieu to develop effective coping skills to reduce depression and free of suicide ideation. Coordinate discharge resource needs by providing referral for psychiatric treatment follow up in the community. Discharge/Continuing Care - Education Needs Education Needs: Family Medication, Family Diagnosis/Disease Process, Family Coping Skills, Family Placement options, Family Community resources, Family Activities of Daily Living, Family Health Practices/Safety, Family Personal Hygiene/Grooming, Family Aftercare Safety Plan, Patient Medication, Patient Diagnosis/Disease Process, Patient Coping Skills, Patient Placement options, Patient Community resources, Patient Activities of Daily Living, Patient Health Practices/Safety, Patient Personal Hygiene/Grooming, Patient Aftercare Safety Plan - Discharge Discharge Criteria: Tolerates medication w/o severe side effects, Normal sleep pattern, Ability to care for self, Reduction of target symptoms, Other (Reduced depression and anxiety) Discharge to:: Home, With Family - Additional Comments 03/01/18 10:21 LATE ENTRY FROM 02/28/2018: Pt seen and discussed in team meeting. Reason for admission reviewed and discussed.Pt reported her brother referred her to the ED because "he didn't like the condition i was in." Pt reported not feeling "well." Pt reported feeling depressed and anxious. Pt presented with flat affect, appropriate to mood. Pt presented with delayed speech and poor concentration and memory. Pt reported sleep disturbances and "so so" appetite. Pt reported visual hallucinations of "scary things." Pt reported intermittent suicide ideation without a plan. Pt stated "sometimes i want to kill myself. I want too but i can't. I don't have a way." Pt's social and medical issues reviewed and discussed. Pt reported she resides with her brother, Rishabh and her son. Pt reported she recently just relocated from [place] to [place]. Pt's medications reviewed and discussed by attending psychiatrist. Tx plan reviewed - group milieu, family meeting or via telephone contact, medication regimen, daily MD evaluations and RN monitoring; pt verbalized agreement. Pt provided video games storywriter with verbal authorization to contact her brother, Rishabh ([phone]) for collateral information. SW to continue to follow case. - Treatment Team Participation Discussed with Family/SO: No Was Patient/Family/SO present at Treatment Team Meeting: Yes
[2018-02-28 07:38] LABS: IRON 34 ug/dL (37-170)
[2018-02-28 08:10] LABS: FERRITIN 32.9 ng/Ml (11.1-264.0)
[2018-02-28 08:21] LABS: % IRON SATURATION 11 % (20-55); TOTAL IRON BINDING CAPACITY 303 ug/dL (250-450)
--- NOTE | 2018-02-28 09:11 | RAD ---
Date of service: 02/27/2018 PROCEDURE: CHEST RADIOGRAPH, 1 VIEW HISTORY: Shortness of breath COMPARISON: None available. FINDINGS: LUNGS: Clear. PLEURA: No pneumothorax or pleural fluid seen. CARDIOVASCULAR: Atherosclerotic aortic calcifications. Cardiomediastinal silhouette at the upper limits of normal in size. OSSEOUS STRUCTURES: Degenerative changes. VISUALIZED UPPER ABDOMEN: Normal. OTHER FINDINGS: None. IMPRESSION: No active disease.
--- NOTE | 2018-02-28 11:33 | PCM.PSYCH ---
Initial Psychiatric Evaluation - Initial Psychiatric Evaluation Type of Admission: Voluntary Legal Status: Capacity Chief Complaint (in patient's own words): "I'm depressed." Patient's Reaction to Hospitalization: HPI: 63 yo female w/ h/o depression, presents w/ worsening depression, worsening memory, auditory hallucinations, visual hallucinations of "scary things," and paranoia in the setting of poor compliance with medications. Patient does not recall which medications she takes, but as per records, patient has a history of treatment with Wellbutrin, Doxepine and Klonopin. She reports intermittent suicidal ideations w/o current plan. No HI. PMHx: HTN, HLD, Hypothyroid, Seasonal Allergies, CAD, GERD PMHx: Unclear psychiatric history, patient is a poor historian ALL: PCN SHx: [place]; lives w/ family, denies drugs/etoh/cig use FHx: States "everyone" in the family has mental illness, but did not specify Current Medications: Active Medications Generic Name Dose Route Start Last Admin Trade Name Freq PRN Reason Stop Dose Admin Acetaminophen 650 mg 02/27/18 20:56 Tylenol 325mg Tab PO Q4 PRN Pain, moderate (4-7) Al Hydrox/Mg Hydrox/Simethicone 30 ml 02/27/18 20:56 Maalox Plus 30 Ml PO Q4 PRN Dyspepsia Bismuth Subsalicylate 524 mg 02/27/18 20:56 Pepto-Bismol PO Q4 PRN Diarrhea Lorazepam 0.5 mg 02/27/18 20:56 Ativan PO 03/13/18 20:57 HS PRN Insomnia Lorazepam 0.5 mg 02/27/18 20:56 Ativan PO 03/13/18 20:57 Q6 PRN Anixety/Agitation Magnesium Hydroxide 30 ml 02/27/18 20:56 Milk Of Magnesia PO HS PRN Constipation Past Psychiatric History - Past Psychiatric History Pertinent Medical Hx (Current Medical&Sleep Prob, Allergies): Allergies Allergy/AdvReac Type Severity Reaction Status Date / Time Penicillins Allergy ANAPHYLAXIS Verified 01/17/18 10:28 Clopidogrel [Plavix] 75 mg PO DAILY 12/11/17 Doxepin HCl 50 mg PO HS 12/11/17 Irbesartan [Avapro] 300 mg PO DAILY 12/11/17 Levothyroxine [Synthroid] 100 mcg PO DAILY 12/11/17 Loratadine [Claritin] 10 mg PO DAILY 12/11/17 Montelukast [Singulair] 10 mg PO HS 12/11/17 Sucralfate [Carafate Tab] 1 gm PO TID 12/11/17 cloNIDine [Catapres] 0.3 mg PO DAILY 12/11/17 Gabapentin 400 mg PO TID #90 capsule 01/17/18 Gemfibrozil 600 mg PO BID #60 tablet 01/17/18 Isosorbide Dinitrate [Isosorbide Dinitrate ER] 40 mg PO DAILY #30 tablet.er 01/17/18 Nitroglycerin [Nitrostat] 0.4 mg SL Q5MIN PRN 02/27/18 buPROPion SR [Wellbutrin SR 150 MG] 150 mg PO DAILY 02/27/18 clonazePAM [Klonopin] 1 mg PO Q12 02/27/18 Review of Systems - Psychiatric Psychiatric: Abnormal Sleep Pattern, Anhedonia, Anxiety, Auditory Hallucinations, Behavioral Changes, Change in Appetite, Confusion, Depression, Difficulty Concentrating, Hallucinations, Hopelessness, Suicidal Ideation, Visual Hallucinations Mental Status Examination - Personal Presentation Personal Presentation: Looks older than stated age - Affect Affect: Constricted, Depressed - Motor Activity Motor Activity: Psychomotor Retardation - Reliability in Providing Information Reliability in Providing Information: Poor, due to altered mood - Speech Speech: Coherent, Other (Poverty of Speech) - Mood Mood: Depressed - Formal Thought Process Formal Thought Process: Loosening of associations - Hallucinations/Delusions Additional comments: Reports recent AH/VH; denies current - Obsessions/Compulsions Obsessions: No Compulsions: No - Cognitive Functions Orientation: Person, Place, Situation, Time Sensorium: Alert Estimate of Intelligence: Average Judgement: Imparied, as evidence by: Poor judgement, Imparied, as evidence by: Lack of insight into illness - Risk Risk: Suicidal, Diminished functioning - Strength & Assets Inventory Strength & Assets Inventory: Family support, Cooperative - Limitations Limitations: Decreased memory, recent DSM 5 DX - DSM 5 DSM 5 Diagnosis: Major Depressive Disorder w/ Psychotic Features - Recommended/Plan of Treatment Treatment Recommendations and Plan of Treatment: Major Depressive Disorder w/ Psychotic Features -Admit to psychiatry unit -Individual and group therapy -Restart Wellbutrin -Start Risperdal -Medicine consult -Obtain collateral history -Disposition planning Projected ELOS: 7-10 days Discharge Plan and Discharge Criteria: Discharge when patient is psychiatrically stable - Smoking Cessation Smoking Cessation Initiated: No Reason for not providing: Not indicated
[2018-02-28] MEDS: buPROPion SR 150 MG TABLET PO SCH (13:01)
[2018-02-28] MEDS: Levothyroxine 100 MCG TAB PO SCH (13:05)
--- NOTE | 2018-02-28 20:06 | CP.PCM.CON ---
History of Present Illness - History of Present Illness History of Present Illness: 63 y/o female with PMH depression , HTN, asthma , Hypothyroidism admitted to psych for management of depression . History obtained from patient. She states that has been suffering of insomnia and depression for some time and has been on treatment . As per patient her brother was the one that brought her for evaluation . During the interview patient keeps apologizing for what she has done without giving any details. Complains of pain to mid thoracic spine for very long time , denies trauma. States that sometime gets chest pain . Denies any SOB , PND , orthopnea,has urinary frequency at times , denies changes in bowel movements Denies any cough, fever , chills, nausea, vomiting , weight loss or weight gain Allergies ; Penicilline PMH ; Depression , HTN, asthma , hypothyroidism, insomnia Medications; See med rec Surgery ;Removal of breast cysts Family history ; hypertension runs in family Social history : lives with brother in [place] , , has 2 children , denies smoking ETOh ( ex smoker )or drug abuse , used to work as homemaker Code status; Full ROS ; 10 point review of system negative except above Review of Systems - Review of Systems All systems: reviewed and no additional remarkable complaints except Past Patient History - Infectious Disease Hx of Infectious Diseases: None - Tetanus Immunizations Tetanus Immunization: Unknown - Past Medical History & Family History Past Medical History?: Yes - Past Social History Smoking Status: Former Smoker Chewing Tobacco Use: No Cigar Use: No Alcohol: None Home Situation {Lives}: With Family Domestic Violence: Negative - CARDIAC Hx Cardiac Disorders: Yes Hx Angina: Yes Hx Hypertension: Yes - PULMONARY Hx Respiratory Disorders: Yes Hx Asthma: Yes Hx Chronic Obstructive Pulmonary Disease (COPD): Yes - NEUROLOGICAL Hx Neurological Disorder: No - HEENT Hx HEENT Problems: No - RENAL Hx Chronic Kidney Disease: No - ENDOCRINE/METABOLIC Hx Endocrine Disorders: Yes Hx Diabetes Mellitus Type 2: Yes Hx Hypothyroidism: Yes - HEMATOLOGICAL/ONCOLOGICAL Hx Blood Disorders: No - INTEGUMENTARY Hx Dermatological Problems: No - MUSCULOSKELETAL/RHEUMATOLOGICAL Hx Musculoskeletal Disorders: No Hx Falls: No - GASTROINTESTINAL Hx Gastrointestinal Disorders: No - GENITOURINARY/GYNECOLOGICAL Hx Genitourinary Disorders: No - PSYCHIATRIC Hx Depression: Yes Hx Substance Use: No - SURGICAL HISTORY Hx Surgeries: Yes Hx Tubal Ligation: Yes Other/Comment: b/l cyst removal from breasts - ANESTHESIA Hx Anesthesia: Yes Hx Anesthesia Reactions: No Hx Malignant Hyperthermia: No Meds Allergies/Adverse Reactions: Allergies Allergy/AdvReac Type Severity Reaction Status Date / Time Penicillins Allergy ANAPHYLAXIS Verified 01/17/18 10:28 - Medications Medications: Current Medications Acetaminophen (Tylenol 325mg Tab) 650 mg PO Q4 PRN PRN Reason: Pain, moderate (4-7) Al Hydrox/Mg Hydrox/Simethicone (Maalox Plus 30 Ml) 30 ml PO Q4 PRN PRN Reason: Dyspepsia Bismuth Subsalicylate (Pepto-Bismol) 524 mg PO Q4 PRN PRN Reason: Diarrhea Bupropion HCl (Wellbutrin Sr 150 Mg) 150 mg PO DAILY [facility] Last Admin: 02/28/18 13:01 Dose: 150 mg Clonidine HCl (Catapres) 0.3 mg PO DAILY [facility] Last Admin: 02/28/18 13:03 Dose: 0.3 mg Clopidogrel Bisulfate (Plavix) 75 mg PO DAILY [facility] Last Admin: 02/28/18 13:05 Dose: 75 mg Gabapentin (Neurontin) 400 mg PO TID [facility] Last Admin: 02/28/18 17:38 Dose: 400 mg Gemfibrozil (Lopid) 600 mg PO BID [facility] Last Admin: 02/28/18 17:38 Dose: 600 mg Isosorbide Dinitrate (Isordil) 20 mg PO BID [facility] Levothyroxine Sodium (Synthroid) 100 mcg PO DAILY@0630 [facility] Last Admin: 02/28/18 13:05 Dose: 100 mcg Lorazepam (Ativan) 0.5 mg PO HS PRN PRN Reason: Insomnia Stop: 03/13/18 20:57 Lorazepam (Ativan) 0.5 mg PO Q6 PRN PRN Reason: Anixety/Agitation Stop: 03/13/18 20:57 Magnesium Hydroxide (Milk Of Magnesia) 30 ml PO HS PRN PRN Reason: Constipation Risperidone (Risperdal M-Tab) 1 mg PO HS [facility] Physical Exam - Constitutional Appears: Non-toxic, No Acute Distress - Head Exam Head Exam: ATRAUMATIC, NORMAL INSPECTION, NORMOCEPHALIC - Eye Exam Eye Exam: EOMI, Normal appearance, PERRL Pupil Exam: NORMAL ACCOMODATION - ENT Exam ENT Exam: Mucous Membranes Moist, Normal Exam - Neck Exam Neck exam: Positive for: Full Rom, Normal Inspection - Respiratory Exam Respiratory Exam: Clear to Auscultation Bilateral, NORMAL BREATHING PATTERN. absent: Rales, Rhonchi, Wheezes - Cardiovascular Exam Cardiovascular Exam: REGULAR RHYTHM, RRR, +S1, +S2. absent: JVD - GI/Abdominal Exam GI & Abdominal Exam: Normal Bowel Sounds, Soft. absent: Distended, Guarding, Rebound, Tenderness - Rectal Exam Rectal Exam: Deferred - Extremities Exam Extremities exam: Positive for: normal capillary refill, normal inspection, pedal pulses present. Negative for: pedal edema - Back Exam Back exam: NORMAL INSPECTION. absent: paraspinal tenderness, vertebral tenderness - Neurological Exam Neurological exam: Alert, CN II-XII Intact, Oriented x3 - Psychiatric Exam Psychiatric exam: Depressed, Flat Affect - Skin Skin Exam: Dry, Intact, Normal Color, Warm Results - Vital Signs Recent Vital Signs: Last Vital Signs Temp 97.7 F 02/28/18 15:55 Pulse 110 H 02/28/18 15:55 Resp 20 02/28/18 15:55 BP 114/66 02/28/18 15:55 Pulse Ox 99 02/27/18 20:36 - Labs Result Diagrams: 02/27/18 14:00 02/27/18 14:00 Labs: Laboratory Results - last 24 hr 02/28/18 02/28/18 02/28/18 06:30 06:30 06:30 Hemoglobin A1c 6.1 Iron 34 L TIBC 303 % Saturation 11 L Ferritin 32.9 Triglycerides 73 D Cholesterol 111 LDL Cholesterol Direct 40 HDL Cholesterol 35 Vitamin B12 244 Free T4 02/28/18 06:30 Hemoglobin A1c Iron TIBC % Saturation Ferritin Triglycerides Cholesterol LDL Cholesterol Direct HDL Cholesterol Vitamin B12 Free T4 1.77 Assessment & Plan - Assessment and Plan (Free Text) Assessment: 63 y/o female with PMH depression , HTN, asthma , Hypothyroidism admitted to psych for management of depression . 1. Depression management as per psych 2. Asthma on Montelukast 3. HTN resume isosorbide Avapro not formulary. Will substitute for losartan 100 mg po QD 4.Hypothyroidism TSH - wnl Resume synthroid 5. Dyslipidemia on gemfibrozil 6. GI prophylaxis on Carafate PO
[2018-02-28 21:56] LABS: FOLATE 9.1 ng/mL
[2018-02-28] MEDS ORDERED: Risperidone M tab 1 MG PO SCH (22:00)
[2018-03-01] MEDS: buPROPion SR 150 MG TABLET PO SCH (09:19)
[2018-03-01] MEDS: Levothyroxine 100 MCG TAB PO SCH (09:20)
--- NOTE | 2018-03-01 10:40 | PCM.PYCHPN ---
Psychiatric Progress Note - Psychiatric Progress Note Patient seen today, length of contact: Pt evaluated, case discussed w/ team, chart reviewed Patient Chief Complaint: "I'm depressed." Problems Identified/Issues Discussed: Patient continues to be bizarre w/ constricted affect and odd pacing behaviors. She reports feeling depressed w/ continued AH/VH. She denies current SI/HI. Medication Change: Yes (Increase Risperdal) Medical Record Reviewed: Yes Consults ordered or reviewed: Medicine consult Mental Status Examination - Cognitive Function Orientation: Person, Place, Situation, Time Memory: Impaired Attention: Poor Concentration: Poor Association: Loose Fund of Knowledge: Poor Decription of patient's judgement and insights: Poor I/J - Mood Mood: Depressed - Affect Affect: Constricted, Depressed - Speech Speech: Appropriate - Formal Thought Process Formal Thought Process: Hallucinations, Loosening of associations Psychotic Thoughts and Behaviors: +AH/VH - Suicidal Ideation Suicidal Ideation: No - Homicidal Ideation Homicidal Ideation: No Goal/Treatment Plan - Goal/Treatment Plan Need for Continued Stay: Remain at risks for inpatient hospitalization, Severe depression anxiety, Discharge may exacerbated symptoms Progress Toward Problem(s) and Goals/Treatment Plan: Major Depressive Disorder w/ Psychotic Features -Individual and group therapy -Continue Wellbutrin -Increase Risperdal -Medicine consult -Obtain collateral history -Disposition planning Estimated Date of D/C: 03/07/18
[2018-03-02] MEDS: buPROPion SR 150 MG TABLET PO SCH (09:01)
[2018-03-02] MEDS: Levothyroxine 100 MCG TAB PO SCH (09:01)
[2018-03-02 09:11] LABS: SQUAMOUS EPITHIAL 47 /hpf (0-5); URINE BACTERIA FEW (<OCC); URINE BILIRUBIN NEGATIVE (NEGATIVE); URINE BLOOD SMALL (NEGATIVE); URINE CLARITY TURBID (Clear); URINE COLOR YELLOW (YELLOW); URINE GLUCOSE (UA) NEG (Normal); URINE LEUKOCYTE ESTERASE LARGE Leu/uL (Negative); URINE PROTEIN 100 mg/dL (NEGATIVE); URINE UROBILINOGEN 0.2-1.0 mg/dL (0.2-1.0); WBC CLUMPS FEW /hpf
--- NOTE | 2018-03-02 11:44 | PCM.PYCHPN ---
Psychiatric Progress Note - Psychiatric Progress Note Patient seen today, length of contact: Pt evaluated, case discussed w/ team, chart reviewed Patient Chief Complaint: "I'm depressed." Problems Identified/Issues Discussed: Patient continues to be depressed w/ bizarre and constricted affect. She continues to report AH and VH of shadows. She denies current SI/HI. Medication Change: Yes (Increase Risperdal) Medical Record Reviewed: Yes Consults ordered or reviewed: Medicine consult Mental Status Examination - Cognitive Function Orientation: Person, Place, Situation, Time Memory: Impaired Attention: Poor Concentration: Poor Association: Loose Fund of Knowledge: Poor Decription of patient's judgement and insights: Poor I/J - Mood Mood: Depressed - Affect Affect: Constricted, Depressed - Speech Speech: Appropriate - Formal Thought Process Formal Thought Process: Hallucinations, Loosening of associations Psychotic Thoughts and Behaviors: +AH/VH - Suicidal Ideation Suicidal Ideation: No - Homicidal Ideation Homicidal Ideation: No Goal/Treatment Plan - Goal/Treatment Plan Need for Continued Stay: Remain at risks for inpatient hospitalization, Severe depression anxiety, Discharge may exacerbated symptoms Progress Toward Problem(s) and Goals/Treatment Plan: Major Depressive Disorder w/ Psychotic Features -Individual and group therapy -Continue Wellbutrin -Increase Risperdal -Medicine consult -Obtain collateral history -Disposition planning Estimated Date of D/C: 03/06/18
[2018-03-02 13:11] LABS: T4 8.85 ug/dl (5.5-11.0)
[2018-03-03] MEDS: Levothyroxine 100 MCG TAB PO SCH (06:22)
[2018-03-03] MEDS: buPROPion SR 150 MG TABLET PO SCH (08:57)
--- NOTE | 2018-03-03 10:25 | PCM.PYCHPN ---
Psychiatric Progress Note - Psychiatric Progress Note Patient seen today, length of contact: Pt evaluated, case discussed w/ team, chart reviewed Patient Chief Complaint: pt has remained depressed and anxious with poor insight about her psychosis and still hallucinations. Medication Change: Yes (Increase Risperdal) Medical Record Reviewed: Yes Mental Status Examination - Cognitive Function Orientation: Person, Place, Situation, Time Memory: Impaired Attention: Poor Concentration: Poor Association: Loose Fund of Knowledge: Poor - Mood Mood: Depressed - Affect Affect: Constricted, Depressed - Speech Speech: Appropriate - Formal Thought Process Formal Thought Process: Hallucinations, Loosening of associations - Suicidal Ideation Suicidal Ideation: No - Homicidal Ideation Homicidal Ideation: No Goal/Treatment Plan - Goal/Treatment Plan Need for Continued Stay: Remain at risks for inpatient hospitalization, Severe depression anxiety, Discharge may exacerbated symptoms Progress Toward Problem(s) and Goals/Treatment Plan: will increase risperdal to 0.5 mg 5 pm and 3 mg hs and engGe pt in thrrapy. Estimated Date of D/C: 03/06/18
[2018-03-04] MEDS: buPROPion SR 150 MG TABLET PO SCH (08:28)
[2018-03-04] MEDS: Levothyroxine 100 MCG TAB PO SCH (08:28)
--- NOTE | 2018-03-04 14:33 | PCM.PYCHPN ---
Psychiatric Progress Note - Psychiatric Progress Note Patient seen today, length of contact: Pt evaluated, case discussed w/ team, chart reviewed Patient Chief Complaint: pt has remained withdrawn and depressed and anxious with poor insight about her psychosis and still hallucinationing but can be redirected .no mood outbursts .denies side effects to meds. Medication Change: Yes (Increase Risperdal) Medical Record Reviewed: Yes Mental Status Examination - Cognitive Function Orientation: Person, Place, Situation, Time Memory: Impaired Attention: Poor Concentration: Poor Association: Loose Fund of Knowledge: Poor - Mood Mood: Depressed - Affect Affect: Constricted, Depressed - Speech Speech: Appropriate - Formal Thought Process Formal Thought Process: Hallucinations, Loosening of associations - Suicidal Ideation Suicidal Ideation: No - Homicidal Ideation Homicidal Ideation: No Goal/Treatment Plan - Goal/Treatment Plan Need for Continued Stay: Remain at risks for inpatient hospitalization, Severe depression anxiety, Discharge may exacerbated symptoms Progress Toward Problem(s) and Goals/Treatment Plan: will increase risperdal to 0.5 mg 5 pm and 3 mg hs and engage pt in thrrapy. Disposition plans as per dr edmond and treatment team. Estimated Date of D/C: 03/06/18
[2018-03-05] MEDS: Levothyroxine 100 MCG TAB PO SCH (09:02)
[2018-03-05] MEDS: buPROPion SR 150 MG TABLET PO SCH (09:03)
--- NOTE | 2018-03-05 14:31 | PCM.PYCHPN ---
Psychiatric Progress Note - Psychiatric Progress Note Patient seen today, length of contact: Pt evaluated, case discussed w/ team, chart reviewed Patient Chief Complaint: "I'm depressed." Problems Identified/Issues Discussed: Patient continues to be depressed and anxious w/ CAH telling her to kill herself and VH of shadows. She reports SI, but denies active plan or intent. Medication Change: Yes (Increase Risperdal) Medical Record Reviewed: Yes Consults ordered or reviewed: Medicine consult Mental Status Examination - Cognitive Function Orientation: Person, Place, Situation, Time Memory: Impaired Attention: Poor Concentration: Poor Association: Loose Fund of Knowledge: Poor Decription of patient's judgement and insights: Poor I/J - Mood Mood: Depressed - Affect Affect: Constricted, Depressed - Speech Speech: Appropriate - Formal Thought Process Formal Thought Process: Hallucinations, Loosening of associations Psychotic Thoughts and Behaviors: +CAH, +VH - Suicidal Ideation Suicidal Ideation: Yes - Homicidal Ideation Homicidal Ideation: No Goal/Treatment Plan - Goal/Treatment Plan Need for Continued Stay: Remain at risks for inpatient hospitalization, Severe depression anxiety, Discharge may exacerbated symptoms Progress Toward Problem(s) and Goals/Treatment Plan: Major Depressive Disorder w/ Psychotic Features -Individual and group therapy -Continue Wellbutrin -Increase Risperdal -Medicine consult -Obtain collateral history -Disposition planning Estimated Date of D/C: 03/09/18
--- NOTE | 2018-03-06 08:54 | PCM.PYCHPN ---
Psychiatric Progress Note - Psychiatric Progress Note Patient seen today, length of contact: Pt evaluated, case discussed w/ team, chart reviewed Patient Chief Complaint: "I'm depressed." Problems Identified/Issues Discussed: Patient continues to be depressed w/ CAH telling her to kill herself and VH of shadows. She reports SI, but denies active plan or intent. She has poor insight into her psychotic symptoms. Medication Change: No Medical Record Reviewed: Yes Consults ordered or reviewed: Medicine consult Mental Status Examination - Cognitive Function Orientation: Person, Place, Situation, Time Memory: Impaired Attention: Poor Concentration: Poor Association: Loose Fund of Knowledge: Poor Decription of patient's judgement and insights: Poor I/J - Mood Mood: Depressed - Affect Affect: Constricted, Depressed - Speech Speech: Appropriate - Formal Thought Process Formal Thought Process: Hallucinations, Loosening of associations Psychotic Thoughts and Behaviors: +CAH, +VH - Suicidal Ideation Suicidal Ideation: Yes - Homicidal Ideation Homicidal Ideation: No Goal/Treatment Plan - Goal/Treatment Plan Need for Continued Stay: Remain at risks for inpatient hospitalization, Severe depression anxiety, Discharge may exacerbated symptoms Progress Toward Problem(s) and Goals/Treatment Plan: Major Depressive Disorder w/ Psychotic Features -Individual and group therapy -Continue Wellbutrin -Continue Risperdal -Medicine consult -Obtain collateral history -Disposition planning Estimated Date of D/C: 03/09/18
[2018-03-06] MEDS: buPROPion SR 150 MG TABLET PO SCH (09:01)
[2018-03-06] MEDS: Levothyroxine 100 MCG TAB PO SCH (09:01)
[2018-03-06] MEDS: Tmp-Smz 800 mg-160 mg DS Tab PO SCH ×2 (12:18→21:21)
[2018-03-07] MEDS: Tmp-Smz 800 mg-160 mg DS Tab PO SCH ×2 (08:33→21:12)
[2018-03-07] MEDS: buPROPion SR 150 MG TABLET PO SCH (08:34)
[2018-03-07] MEDS: Levothyroxine 100 MCG TAB PO SCH (08:36)
--- NOTE | 2018-03-07 10:56 | PCM.PYCHPN ---
Psychiatric Progress Note - Psychiatric Progress Note Patient seen today, length of contact: Pt evaluated, case discussed w/ team, chart reviewed Patient Chief Complaint: "I'm depressed." Problems Identified/Issues Discussed: Patient continues to be depressed w/ psychomotor retardation, blunted affect, bizarre behavior, such as standing in place and staring for long periods of time. Patient continues to have CAH telling her to kill herself. She states that she wanted to and has plans to: 1. self starvation, 2. strangle herself, 3. jump in front of a truck. Patient has a history of several suicide attempts in the past. She is currently requesting to be discharged and signed a 48 hr letter. She has poor insight into her psychotic symptoms. Medication Change: No Medical Record Reviewed: Yes Consults ordered or reviewed: Medicine consult Mental Status Examination - Cognitive Function Orientation: Person, Place, Situation, Time Memory: Impaired Attention: Poor Concentration: Poor Association: Loose Fund of Knowledge: Poor Decription of patient's judgement and insights: Poor I/J - Mood Mood: Depressed - Affect Affect: Blunted, Depressed - Speech Speech: Appropriate - Formal Thought Process Formal Thought Process: Hallucinations, Loosening of associations Psychotic Thoughts and Behaviors: +CAH, +VH - Suicidal Ideation Suicidal Ideation: Yes Plan: Plans to starve herself to , strangle herself or jump in front of a truck. - Homicidal Ideation Homicidal Ideation: No Goal/Treatment Plan - Goal/Treatment Plan Need for Continued Stay: Remain at risks for inpatient hospitalization, Severe depression anxiety, Discharge may exacerbated symptoms Progress Toward Problem(s) and Goals/Treatment Plan: Major Depressive Disorder w/ Psychotic Features vs Schizoaffective Disorder -Individual and group therapy -Continue Wellbutrin -Continue Risperdal -Medicine consult -Screen for involuntary psychiatric admission, patient is an acute danger to herself Estimated Date of D/C: 03/09/18
--- NOTE | 2018-03-07 13:31 | PCM.BM ---
Treatment Plan Problems - Problems identified on initial assessmt Hopelessness/Helplessness Date Initiated: 02/27/18 Time Initiated: 22:31 Assessment reference: NA Status: Active Altered Sleep Patterns Date Initiated: 02/27/18 Time Initiated: 22:32 Assessment reference: NA Status: Active Medication nonadherence Date Initiated: 02/27/18 Time Initiated: 22:32 Assessment reference: NA Status: Active Treatment assets and liabiliti Patient Assests: cooperative, good support system, negotiates basic needs Patient Liabilities: language/speech - Milieu Protocol Maintain good personal hygiene: every shift Encourage regular showers, every shift Remind patient to perform daily oral care, every shift Assist patient to perform ADL's Conduct patient checks and document Observation sheet: Q15 minutes Maintain personal safety: every shift Educate patient to report safety concerns to staff, every shift Monitor environment for contraband/sharps Medication safety: Monitor for expected outcome, potential side effects: every shift, Assess barriers to learning: every shift, Assess readiness for medication education: every shift Milieu Narrative: Major Depressive Disorder w/ Psychotic Features vs Schizoaffective Disorder -Individual and group therapy -Continue Wellbutrin -Continue Risperdal -Medicine consult -Screen for involuntary psychiatric admission, patient is an acute danger to herself Family Contact Family involvement: Family/SO is involved Family contact: Patient agrees to contact, Family has been contacted by patient, Telephone contact initiated by staff Family contact name: Sumeet (son) & Rishabh (brother) Family contacted how many times per week?: 2 - Goals for Treatment Patient goals for treatment: "To be like everyone else, to be normal and not have this problem." Discharge/Continuing Care - Education Needs Education Needs: Family Medication, Family Diagnosis/Disease Process, Family Coping Skills, Family Placement options, Family Community resources, Family Activities of Daily Living, Family Health Practices/Safety, Family Personal Hygiene/Grooming, Family Aftercare Safety Plan, Patient Medication, Patient Diagnosis/Disease Process, Patient Coping Skills, Patient Placement options, Patient Community resources, Patient Activities of Daily Living, Patient Health Practices/Safety, Patient Personal Hygiene/Grooming, Patient Aftercare Safety Plan - Discharge Discharge Criteria: Tolerates medication w/o severe side effects, Normal sleep pattern, Ability to care for self, Reduction of target symptoms, Other (Reduced depression and anxiety) Discharge to:: Home, With Family - Additional Comments 03/01/18 10:21 LATE ENTRY FROM 02/28/2018: Pt seen and discussed in team meeting. Reason for admission reviewed and discussed.Pt reported her brother referred her to the ED because "he didn't like the condition i was in." Pt reported not feeling "well." Pt reported feeling dep ressed and anxious. Pt presented with flat affect, appropriate to mood. Pt presented with delayed speech and poor concentration and memory. Pt reported sleep disturbances and "so so" appetite. Pt reported visual hallucinations of "scary things." Pt reported intermittent suicide ideation without a plan. Pt stated "sometimes i want to kill myself. I want too but i can't. I don't have a way." Pt's social and medical issues reviewed and discussed. Pt reported she resides with her brother, Rishabh and her son. Pt reported she recently just relocated from [place] to [place]. Pt's medications reviewed and discussed by attending psychiatrist. Tx plan reviewed - group milieu, family meeting or via telephone contact, medication regimen, daily MD evaluations and RN monitoring; pt verbalized agreement. Pt provided investment underwriter with verbal authorization to contact her brother, Rishabh ([phone]) for collateral information. SW to continue to follow case. - Treatment Team Participation Patient/Family/SO Statement: Major Depressive Disorder w/ Psychotic Features vs Schizoaffective Disorder -Individual and group therapy -Continue Wellbutrin -Continue Risperdal -Medicine consult -Screen for involuntary psychiatric admission, patient is an acute danger to herself Discussed with Family/SO: No Was Patient/Family/SO present at Treatment Team Meeting: Yes Treatment Plan Review Patient participation: Yes Family/SO/Caregiver participation: No Additional Comments: Pt seen and discussed in team meeting. Pt participated in team meeting and spoken to in [place] language, Y[place]. Pt reported feeling "good." When asked to further describe "good" pt reported that she wants to go home. Pt continues to verbalized command auditory hallucinations telling her to "kill myself." When asked if she has an active plan, pt stated "yes there is a lot of ways." Pt reported that she would "1. stop eating; 2. strangle myself; and 3. jump into on going traffic." Pt continued to state 'I want to . My life is no good." When asked why she wants to end her life, pt reported that she is having housing issues and lack of work/employment. Pt presents with a flat affect. Pt's speech is slow, soft and low in tone. Pt continues to verbalize that she wants to go home. Executive Director Of Marketing and interdisciplinary team explained 48 hour notice of intent to leave to pt and pt signed it at 10:30AM on 03/07/2018. Pt's medications reviewed and pt is agreeable. Tx plan reviewed and pt requesting to be discharged back home as she is worried about her adult son who is at home alone. SW to continue to follow case. Plan is to contact [facility] and request for a screening to be completed. - Problem Hopelessness/Helplessness Date Initiated: 02/28/18 Time Initiated: 22:31 Progress toward outcomes: unchanged Altered Sleep Patterns Date Initiated: 02/28/18 Time Initiated: 22:32 Progress toward outcomes: improved Medication nonadherence Date Initiated: 02/28/18 Time Initiated: 22:32 Progress toward outcomes: resolved Date resolved: 03/02/18 Suicide Ideation Date Initiated: 03/07/18 Time Initiated: 13:32 Progress toward outcomes: unchanged (Pt continues to report suicide ideation with plan.) - Discharge / Continuing Care Discharge to:: Home, With Family Behavioral Health Services: Partial hospital Health Needs: Follow up care/test, Doctor appointments, Nutritional, M edications/Rx, Educational, Recreational/Social
[2018-03-07 18:04] LABS: BASO # 0.1 K/uL (0.0-0.2); EOS # 0.1 K/uL (0.0-0.7); EOS % 1.8 % (0.0-4.0); HEMOGLOBIN 11.3 g/dL (12.0-16.0); LYMPH # 1.8 K/uL (1.0-4.3); LYMPH % 23.9 % (20.0-40.0); MEAN CORPUSCULAR HEMOGLOBIN 27.6 pg (27.0-31.0); MEAN CORPUSCULAR HGB CONC 33.2 g/dL (33.0-37.0); MEAN PLATELET VOLUME 8.8 fl (7.2-11.7); MONO # 0.6 K/uL (0.0-0.8); MONO % 8.2 % (0.0-10.0); NEUT # 4.8 K/uL (1.8-7.0); NEUT % 65.1 % (50.0-75.0); NRBC % 0.1 % (0.0-0.0); RBC 4.11 Mil/uL (3.80-5.20); RED CELL DISTRIBUTION WIDTH 15.4 % (11.5-14.5); WHITE BLOOD COUNT 7.4 K/uL (4.8-10.8)
[2018-03-07 18:07] LABS: ALB/GLOB RATIO 1.1 (1.0-2.1); ALBUMIN 3.8 g/dL (3.5-5.0); CALCIUM 9.8 mg/dL (8.4-10.2)
[2018-03-07 20:11] LABS: SQUAMOUS EPITHIAL 1 /hpf (0-5); URINE BACTERIA RARE (<OCC); URINE BILIRUBIN NEGATIVE (NEGATIVE); URINE BLOOD NEGATIVE (NEGATIVE); URINE CLARITY CLEAR (Clear); URINE COLOR YELLOW (YELLOW); URINE GLUCOSE (UA) NEG (Normal); URINE LEUKOCYTE ESTERASE NEG Leu/uL (Negative); URINE PROTEIN NEGATIVE (NEGATIVE); URINE UROBILINOGEN 0.2-1.0 mg/dL (0.2-1.0)
[2018-03-08] MEDS: Levothyroxine 100 MCG TAB PO SCH (05:34)
[2018-03-08] MEDS: Tmp-Smz 800 mg-160 mg DS Tab PO SCH ×2 (08:39→21:15)
[2018-03-08] MEDS: buPROPion SR 150 MG TABLET PO SCH (08:44)
--- NOTE | 2018-03-08 08:54 | PCM.PYCHPN ---
Psychiatric Progress Note - Psychiatric Progress Note Patient seen today, length of contact: Pt evaluated, case discussed w/ team, chart reviewed Patient Chief Complaint: "I'm depressed." Problems Identified/Issues Discussed: Patient continues to be depressed w/ psychomotor retardation, blunted affect, bizarre behavior, such as standing in place and staring for long periods of time. Patient continues to have CAH telling her to kill herself. Yesterday she stated that her plans were: 1. self starvation, 2. strangle herself, 3. jump in front of a truck. Medication Change: No Medical Record Reviewed: Yes Consults ordered or reviewed: Medicine consult Mental Status Examination - Cognitive Function Orientation: Person, Place, Situation, Time Memory: Impaired Attention: Poor Concentration: Poor Association: Loose Fund of Knowledge: Poor Decription of patient's judgement and insights: Poor I/J - Mood Mood: Depressed - Affect Affect: Blunted, Depressed - Speech Speech: Appropriate - Formal Thought Process Formal Thought Process: Hallucinations, Loosening of associations Psychotic Thoughts and Behaviors: +CAH, +VH - Suicidal Ideation Suicidal Ideation: Yes - Homicidal Ideation Homicidal Ideation: No Goal/Treatment Plan - Goal/Treatment Plan Need for Continued Stay: Remain at risks for inpatient hospitalization, Severe depression anxiety, Discharge may exacerbated symptoms Progress Toward Problem(s) and Goals/Treatment Plan: Major Depressive Disorder w/ Psychotic Features vs Schizoaffective Disorder -Individual and group therapy -Continue Wellbutrin -Continue Risperdal -Medicine consult -Pending screening for involuntary psychiatric admission by [facility] [place] Estimated Date of D/C: 03/09/18
--- NOTE | 2018-03-09 08:31 | PCM.PYCHPN ---
Psychiatric Progress Note - Psychiatric Progress Note Patient seen today, length of contact: Pt evaluated, case discussed w/ team, chart reviewed Patient Chief Complaint: "I'm depressed." Problems Identified/Issues Discussed: Patient was accepted for involuntary psychiatric admission to [facility] [place], pending bed and transfer. She continues to be depressed w/ psychomotor retardation, blunted affect, bizarre behavior, such as standing in place and staring for long periods of time. Patient continues to have CAH telling her to kill herself. Medication Change: Yes (Increase Risperdal) Medical Record Reviewed: Yes Consults ordered or reviewed: Medicine consult Mental Status Examination - Cognitive Function Orientation: Person, Place, Situation, Time Memory: Impaired Attention: Poor Concentration: Poor Association: Loose Fund of Knowledge: Poor Decription of patient's judgement and insights: Poor I/J - Mood Mood: Depressed - Affect Affect: Blunted, Depressed - Speech Speech: Appropriate - Formal Thought Process Formal Thought Process: Hallucinations, Loosening of associations Psychotic Thoughts and Behaviors: +CAH, +VH - Suicidal Ideation Suicidal Ideation: Yes - Homicidal Ideation Homicidal Ideation: No Goal/Treatment Plan - Goal/Treatment Plan Need for Continued Stay: Remain at risks for inpatient hospitalization, Severe depression anxiety, Discharge may exacerbated symptoms Progress Toward Problem(s) and Goals/Treatment Plan: Major Depressive Disorder w/ Psychotic Features vs Schizoaffective Disorder -Individual and group therapy -Continue Wellbutrin -Increase Risperdal -Medicine consult -Transfer to [facility] [place] for involuntary psychiatric admission when bed is available Estimated Date of D/C: 03/10/18
[2018-03-09] MEDS: Tmp-Smz 800 mg-160 mg DS Tab PO SCH ×2 (08:51→21:36)
[2018-03-09] MEDS: Levothyroxine 100 MCG TAB PO SCH (08:58)
[2018-03-09] MEDS: buPROPion SR 150 MG TABLET PO SCH (08:58)
--- NOTE | 2018-03-09 10:11 | CP.PCM.CON ---
History of Present Illness - History of Present Illness History of Present Illness: Pt is a 63 year old female [facility] and referred to the law writer for evaluation. On the DRS, pt scored an overall score of 117. Pt's Initiation skills fell in the Deficient Range along with her Construction skills . Her Attention, Memory and Conceptualization skills fell within normal limits. Her Initiation performance was likely influenced by the cognitive slowing apparant. Re-testing is recommended when her psych status improves. Overall 117 Initiation 26 Attention 34 Construction 3 Conceptualization 36 Memory 18 Past Patient History - Infectious Disease Hx of Infectious Diseases: None - Tetanus Immunizations Tetanus Immunization: Unknown - Past Medical History & Family History Past Medical History?: Yes - Past Social History Smoking Status: Former Smoker Chewing Tobacco Use: No Cigar Use: No Alcohol: None Home Situation {Lives}: With Family Domestic Violence: Negative - CARDIAC Hx Cardiac Disorders: Yes Hx Angina: Yes Hx Hypertension: Yes - PULMONARY Hx Respiratory Disorders: Yes Hx Asthma: Yes Hx Chronic Obstructive Pulmonary Disease (COPD): Yes - NEUROLOGICAL Hx Neurological Disorder: No - HEENT Hx HEENT Problems: No - RENAL Hx Chronic Kidney Disease: No - ENDOCRINE/METABOLIC Hx Endocrine Disorders: Yes Hx Diabetes Mellitus Type 2: Yes Hx Hypothyroidism: Yes - HEMATOLOGICAL/ONCOLOGICAL Hx Blood Disorders: No - INTEGUMENTARY Hx Dermatological Problems: No - MUSCULOSKELETAL/RHEUMATOLOGICAL Hx Musculoskeletal Disorders: No Hx Falls: No - GASTROINTESTINAL Hx Gastrointestinal Disorders: No - GENITOURINARY/GYNECOLOGICAL Hx Genitourinary Disorders: No - PSYCHIATRIC Hx Depression: Yes Hx Substance Use: No - SURGICAL HISTORY Hx Surgeries: Yes Hx Tubal Ligation: Yes Other/Comment: b/l cyst removal from breasts - ANESTHESIA Hx Anesthesia: Yes Hx Anesthesia Reactions: No Hx Malignant Hyperthermia: No Meds Allergies/Adverse Reactions: Allergies Allergy/AdvReac Type Severity Reaction Status Date / Time Penicillins Allergy ANAPHYLAXIS Verified 01/17/18 10:28 - Medications Medications: Current Medications Acetaminophen (Tylenol 325mg Tab) 650 mg PO Q4 PRN PRN Reason: Pain, moderate (4-7) Last Admin: 03/08/18 19:53 Dose: 650 mg Al Hydrox/Mg Hydrox/Simethicone (Maalox Plus 30 Ml) 30 ml PO Q4 PRN PRN Reason: Dyspepsia Bismuth Subsalicylate (Pepto-Bismol) 524 mg PO Q4 PRN PRN Reason: Diarrhea Bupropion HCl (Wellbutrin Sr 150 Mg) 150 mg PO DAILY [facility] Last Admin: 03/09/18 08:58 Dose: 150 mg Clonidine HCl (Catapres) 0.3 mg PO DAILY [facility] Last Admin: 03/09/18 08:53 Dose: 0.3 mg Clopidogrel Bisulfate (Plavix) 75 mg PO DAILY [facility] Last Admin: 03/09/18 08:56 Dose: 75 mg Gabapentin (Neurontin) 400 mg PO TID [facility] Last Admin: 03/09/18 08:55 Dose: 400 mg Gemfibrozil (Lopid) 600 mg PO BID [facility] Last Admin: 03/09/18 08:55 Dose: 600 mg Isosorbide Dinitrate (Isordil) 20 mg PO BID [facility] Last Admin: 03/09/18 08:55 Dose: 20 mg Levothyroxine Sodium (Synthroid) 100 mcg PO DAILY@0630 [facility] Last Admin: 03/09/18 08:58 Dose: 100 mcg Lorazepam (Ativan) 0.5 mg PO HS PRN PRN Reason: Insomnia Stop: 03/13/18 20:57 Lorazepam (Ativan) 0.5 mg PO Q6 PRN PRN Reason: Anixety/Agitation Stop: 03/13/18 20:57 Last Admin: 03/07/18 10:42 Dose: 0.5 mg Losartan Potassium (Cozaar) 100 mg PO DAILY [facility] Last Admin: 03/09/18 08:54 Dose: 100 mg Magnesium Hydroxide (Milk Of Magnesia) 30 ml PO HS PRN PRN Reason: Constipation Montelukast Sodium (Singulair) 10 mg PO HS [facility] Last Admin: 03/08/18 21:15 Dose: 10 mg Nitroglycerin (Nitrostat Sl Tab) 0.4 mg SL Q5MIN PRN PRN Reason: chest pain Risperidone (Risperdal Tab) 3 mg PO Q12 [facility] Last Admin: 03/09/18 08:57 Dose: 3 mg Sucralfate (Carafate Tab) 1 gm PO TID [facility] Last Admin: 03/09/18 08:51 Dose: 1 gm Trimethoprim/Sulfamethoxazole (Bactrim Ds Tab) 1 tab PO Q12 [facility]; Protocol Stop: 03/13/18 11:16 Last Admin: 03/09/18 08:51 Dose: 1 tab Results - Vital Signs Recent Vital Signs: Last Vital Signs Temp 98.1 F 03/09/18 05:54 Pulse 77 03/09/18 08:54 Resp 18 03/09/18 05:54 BP 128/76 03/09/18 08:54 Pulse Ox 99 02/27/18 20:36 - Labs Result Diagrams: 03/07/18 17:53 03/07/18 17:53
[2018-03-10 04:39] VITALS: BP 122/72; PULSE 83; RESP 18; TEMP 98
--- NOTE | 2018-03-12 09:57 | PCM.PYCHDC ---
Mental Status Examination - Mental Status Examination Orientation: Person Memory: Impaired Mood: Depressed Affect: Constricted Attention: Poor Concentration: Poor Association: Loose Fund of Knowledge: Poor Formal Thought Process: Hallucinations Description of patient's judgement and insight: Poor I/J Psychotic Thoughts and Behaviors: +CAH, +VH Suicidal Ideation: Yes Current Homicidal Ideation?: No Discharge Summary - Discharge Note Reason for Hospitalization: HPI: 63 yo female w/ h/o depression, presents w/ worsening depression, worsening memory, auditory hallucinations, visual hallucinations of "scary things," and paranoia in the setting of poor compliance with medications. Patient does not recall which medications she takes, but as per records, patient has a history of treatment with Wellbutrin, Doxepine and Klonopin. She reports intermittent suicidal ideations w/o current plan. No HI. PMHx: HTN, HLD, Hypothyroid, Seasonal Allergies, CAD, GERD PMHx: Unclear psychiatric history, patient is a poor historian ALL: PCN SHx: From [place]; lives w/ family, denies drugs/etoh/cig use FHx: States "everyone" in the family has mental illness, but did not specify Consultations:: List each consultation separately and include: 1. Reason for request. 2. Findings. 3. Follow-up Consultations: Medicine consult Summary of Hospital Course include:: 1. Description of specific treatment plan utilized for patients during their course of treatmen. 2. Summarize the time- course for resolution of acute symptoms and/or regressed behaviors. 3. Describe issues identified and worked on during hospitalization. 4. Describe medication utilized. 5. Describe medical problems identified and treated. 6. Reassessment of suicide risk Summary of Hospital Course: Patient was admitted to the psychiatry unit. Individual and group therapy were provided. Patient was treated w/ Wellbutrin and Risperdal but she continued to report depressed mood w/ suicidal ideation w/ plan. She submitted a 48 hr letter requesting to be discharged, was screened for involuntary psychiatric admission, accepted and [place] [facility]. - Diagnosis (1) Major depressive disorder with psychotic features Status: Acute - Final Diagnosis (DSM 5) Condition upon Discharge: SERIOUS DSM 5: Major Depressive Disorder w/ Psychotic Features Disposition: Trans to Other Acute Care Hosp Follow-up Treatment Plan: Major Depressive Disorder w/ Psychotic Features vs Schizoaffective Disorder -Transfer to [facility] for involuntary psychiatric admission - Smoking Cessation Smoking Cessation Medication prescribed: No Reason for not providing: Not indicated - Antipsychotic Medications Pt discharged on 2 or more routine antipsychotic medications: No
== END 2018-03-10 04:35 | DRG 430 ==
LOC: H.ER 14:28 → H.ERHOLD 19:19 → H.STEP 20:48
PROVIDERS: ADMIT Psychiatry & Neurology Psychiatry; ATTEND Psychiatry & Neurology Psychiatry
PROC: GZHZZZZ Group Psychotherapy (ICD-10-PCS; principal; 2018-02-27)
PROC: GZ51ZZZ Individual Psychotherapy, Behavioral (ICD-10-PCS; 2018-02-27)
DX: F32.3 Major depressive disorder, single episode, severe with psychotic features (principal); J44.9 Chronic obstructive pulmonary disease, unspecified; F80.9 Developmental disorder of speech and language, unspecified; I10 Essential (primary) hypertension; E78.5 Hyperlipidemia, unspecified; I25.10 Atherosclerotic heart disease of native coronary artery without angina pectoris; K21.9 Gastro-esophageal reflux disease without esophagitis; R45.851 Suicidal ideations; Z87.891 Personal history of nicotine dependence; Z91.14 Patient's other noncompliance with medication regimen; Z91.5 Personal history of self-harm; J30.2 Other seasonal allergic rhinitis; G47.9 Sleep disorder, unspecified; E03.9 Hypothyroidism, unspecified; E11.9 Type 2 diabetes mellitus without complications

== ENCOUNTER 2018-04-10 12:39 | Inpatient (IN) | payer MEDICAID ==
[2018-04-10 12:40] VITALS: BMI 25.7
[2018-04-10 13:25] VITALS: O2SAT 99
--- NOTE | 2018-04-10 15:52 | ED PDOC ---
HPI: Psych/Substance Abuse Time Seen by Provider: 04/10/18 13:42 Chief Complaint (Nursing): Psychiatric Evaluation Chief Complaint (Provider): Psychiatric Evaluation History Per: Patient Additional Complaint(s): Cassidy Call is a 63 year old female with a past medical history of HTN, HLD, and depression, who presents to the emergency department after being sent by her brother who was concerned about her low energy and her not getting out of bed. Patient was discharged from inpatient psychiatric clinic a few days ago for treatment for depression. She states she was on new medications that make her tired. Patient states she feels depressed but does not have hallucinations, homicidal or suicidal ideation. She did admit to have auditory hallucinations prior to being admitting to inpatient psych. Patient has not take her medications this morning, including her blood pressure medication. PMD: [facility]t Jones Past Medical History Reviewed: Historical Data, Nursing Documentation, Vital Signs Vital Signs: Last Vital Signs Temp 98.7 F 04/10/18 13:21 Pulse 99 H 04/10/18 13:21 Resp 18 04/10/18 13:21 BP 153/107 H 04/10/18 13:21 Pulse Ox 99 04/10/18 13:21 - Medical History PMH: Anxiety, Asthma, CAD, COPD, Depression, HTN, Hypothyroidism Denies: Chronic Kidney Disease - Surgical History Surgical History: No Surg Hx - Family History Family History: States: Unknown Family Hx - Home Medications Home Medications: Ambulatory Orders Medication Instructions Recorded RX: Irbesartan [Avapro] 300 mg PO DAILY 12/11/17 RX: Levothyroxine [Synthroid] 100 mcg PO DAILY 12/11/17 RX: Loratadine [Claritin] 10 mg PO DAILY 12/11/17 RX: cloNIDine [Catapres] 0.3 mg PO DAILY 12/11/17 Albuterol HFA [Ventolin HFA 90 1 puff IH Q6 PRN 04/10/18 mcg/actuation (8 g)] Nitroglycerin [Nitrostat] 0.4 mg SL PRN 04/10/18 - Allergies Allergies/Adverse Reactions: Allergies Allergy/AdvReac Type Severity Reaction Status Date / Time Penicillins Allergy ANAPHYLAXIS Verified 04/10/18 13:21 Review of Systems ROS Statement: Except As Marked, All Systems Reviewed And Found Negative Constitutional: Positive for: Malaise Psych: Negative for: Suicidal ideation (homicidal ideation; hallucinations) Physical Exam - Reviewed Nursing Documentation Reviewed: Yes Vital Signs Reviewed: Yes - Physical Exam Appears: Positive for: Well, No Acute Distress Head Exam: Positive for: ATRAUMATIC Cardiovascular/Chest: Positive for: Regular Rate, Rhythm. Negative for: Murmur Respiratory: Positive for: Normal Breath Sounds (clear to auscultation bilaterally). Negative for: Respiratory Distress Gastrointestinal/Abdominal: Positive for: Normal Exam, Soft. Negative for: Tenderness Neurologic/Psych: Positive for: Alert, Oriented (x3), Other (Equal strength bilaterally upper and lower extremity) - Laboratory Results Result Diagrams: 04/10/18 17:15 04/10/18 17:15 - ECG O2 Sat by Pulse Oximetry: 99 (RA) Pulse Ox Interpretation: Normal Medical Decision Making Medical Decision Making: Initial Time: 14:55 Initial Plan: --Crisis evaluation --catapres 0.3 mg PO --Cozaar 50 mg PO Scribe Attestation: Documented by Vijay Castillo, acting as a scribe for Joleen Carrera PA-C. Provider Scribe Attestation: All medical record entries made by the Scribe were at my direction and pe rsonally dictated by me. I have reviewed the chart and agree that the record accurately reflects my personal performance of the history, physical exam, medical decision making, and the department course for this patient. I have also personally directed, reviewed, and agree with the discharge instructions and disposition. Disposition - Clinical Impression Clinical Impression: Depression - Patient ED Disposition Is Patient to be Admitted: Yes Discussed With : Paige Kapoor Doctor Will See Patient In The: Hospital - Disposition Disposition Time: 20:40 Condition: STABLE
[2018-04-10 17:29] LABS: BASO # 0.1 K/uL (0.0-0.2); BASO % 1.1 % (0.0-2.0); EOS # 0.2 K/uL (0.0-0.7); HEMOGLOBIN 13.3 g/dL (12.0-16.0); LYMPH % 25.6 % (20.0-40.0); MEAN CELL VOLUME 82.3 fl (81.0-99.0); MEAN CORPUSCULAR HEMOGLOBIN 27.2 pg (27.0-31.0); MEAN PLATELET VOLUME 8.8 fl (7.2-11.7); MONO # 0.6 K/uL (0.0-0.8); NEUT # 4.9 K/uL (1.8-7.0); NEUT % 63.3 % (50.0-75.0); NRBC % 0.1 % (0.0-0.0); RBC 4.91 Mil/uL (3.80-5.20); RED CELL DISTRIBUTION WIDTH 14.9 % (11.5-14.5); WHITE BLOOD COUNT 7.8 K/uL (4.8-10.8)
[2018-04-10 17:40] LABS: ALB/GLOB RATIO 1.2 (1.0-2.1); ALBUMIN 4.1 g/dL (3.5-5.0); ALT/SGPT 27 U/L (9-52); AST/SGOT 20 U/L (14-36); BLOOD UREA NITROGEN 12 mg/dl (7-17); CALCIUM 9.5 mg/dL (8.4-10.2); GFR NON-AFRICAN AMERICAN > 60
--- NOTE | 2018-04-10 18:10 | RAD ---
Date of service: 04/10/2018 HISTORY: admission COMPARISON: 02/27/2018. FINDINGS: LUNGS: The lungs are well inflated and clear. PLEURA: No pleural effusions or pneumothorax. CARDIOVASCULAR: The heart is normal in size. No aortic atherosclerotic calcification present. OSSEOUS STRUCTURES: Within normal limits for the patient's age. VISUALIZED UPPER ABDOMEN: Normal. OTHER FINDINGS: None. IMPRESSION: No active pulmonary disease.
[2018-04-10 20:47] LABS: SQUAMOUS EPITHIAL 4 /hpf (0-5); URINE BACTERIA RARE (<OCC); URINE BILIRUBIN NEGATIVE (NEGATIVE); URINE BLOOD NEGATIVE (NEGATIVE); URINE CLARITY CLOUDY (Clear); URINE COLOR YELLOW (YELLOW); URINE GLUCOSE (UA) NEG (Normal); URINE HYALINE CAST 0-2 /hpf (0-2); URINE LEUKOCYTE ESTERASE LARGE Leu/uL (Negative); URINE PROTEIN 100 mg/dL (NEGATIVE)
[2018-04-10 20:51] LABS: BARBITURATES, UR NEGATIVE (NEGATIVE); BENZODIAZEPINES, UR NEGATIVE (NEGATIVE); OPIATES, UR NEGATIVE (NEGATIVE); PHENCYCLIDINE, UR NEGATIVE (NEGATIVE)
[2018-04-10] MEDS ORDERED: Bismuth Subsalicylate 262 mg/15 ml Sus (240 ml) PO PRN (20:59)
[2018-04-10] MEDS ORDERED: Magnesium Hydroxide Susp 30 ml UD PO PRN (20:59)
[2018-04-10] MEDS ORDERED: Alum-Mag Hydrox-Simethicone Susp (30 mL) PO PRN (20:59)
--- NOTE | 2018-04-10 21:11 | PCM.BM ---
<Abimbola Pitt - Last Filed: 04/10/18 21:09> Treatment Plan Problems - Problems identified on initial assessmt Medication Nonadherence Date Initiated: 04/10/18 Time Initiated: 21:10 Assessment reference: NA Status: Active Less than optimal Nutrition Date Initiated: 04/10/18 Time Initiated: 21:10 Assessment reference: NA Status: Active Treatment assets and liabiliti Patient Assests: cooperative, ADL independent, good support system, negotiates basic needs Patient Liabilities: medical problems, language/speech - Milieu Protocol Maintain good personal hygiene: daily Encourage regular showers, daily Remind patient to perform daily oral care, daily Assist patient to perform ADL's Conduct patient checks and document Observation sheet: Q15 minutes Maintain personal safety: every shift Educate patient to report safety concerns to staff, every shift Monitor environment for contraband/sharps Medication safety: Monitor for expected outcome, potential side effects: every shift, Assess barriers to learning: every shift, Assess readiness for medication education: every shift <Paige Kapoor - Last Filed: 04/11/18 12:42> - Diagnosis (1) Major depressive disorder with psychotic features Status: Acute Interventions: Medication management, Individual and group therapy, Psychoeducation 04/11/18 12:42 <Rosaura Chery - Last Filed: 04/13/18 16:05> Treatment assets and liabiliti Patient Assests: adapts well, cooperative, insightful (limited), self-reliant, ADL independent, good support system (Pt identified her son and her brother as her support system. 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 Per brother, he referred pt to the ED due to worsened depression. Pt's brother reported that pt does not want to leave the bedroom, does not want to go to her scheduled group appointments, and medication non-compliant at times. Pt's brother reported that he is currently having issues with pt's son who is an alcoholic and pt feeds into his addiction. Pt's brother reported that pt and pt's son are currently staying with him and that pt is welcomed to return to the apartment and stay with him. Pt's brother reported that pt is over sleeping and he fears that the medications are too strong. Pt's brother reported that he understands pt is limited in language and PHP might not be the most appropriate setting for her, but also does not want pt to stay at home all day either. Pt reviewed and discussed [facility] referral. Pt's brother in agreement if pt is agreeable. - Outside Agency [place] [facility] Care involvment: Following patient during stay, Information-sharing Agency contact name: Radhika Jackson LCSW Agency contact number: [phone] - Goals for Treatment Patient goals for treatment: Patient to continue stabilization on 3NP through medication management and group/supportive therapy to address sxs of depression, improve functioning and eliminate SI. Patient to be encouraged to attend groups regularly to promote self-awareness, adherence, and improve insight, , coping skills and self-esteem. Patient to be provided with referral for appropriate level of aftercare to reduce risk of future hospitalizations and ensure safety in the community. Discharge/Continuing Care - Education Needs Education Needs: Family Medication, Family Diagnosis/Disease Process, Family Coping Skills, Family Community resources, Family Aftercare Safety Plan, Patient Medication, Patient Diagnosis/Disease Process, Patient Coping Skills, Patient Community resources, Patient Aftercare Safety Plan - Discharge Discharge Criteria: Tolerates medication w/o severe side effects, Free of S uicidal thoughts, Normal sleep pattern, Ability to care for self, Reduction of target symptoms Discharge to:: Home, With Family, Other (Outpatient Mental Health Services/ Adul t Medical Daycare) - Treatment Team Participation Patient/Family/SO Statement: 04/13/18 16:05 Patient seen in tx team this morning to discuss progress on 3NP and discharge planning. Pt. anticipated for discharge on 04/13 and is to be picked-up by brother at 5pm. medical staff assistant notified. Pt. presented with brighter affect than upon admission. Pt reported significant improvement in sxs of depression since admission. Pt. denied SI/HI and was able to contract for safety. Pt. reported improvement in sleep and appetite. Importance of adherence with outpatient mental health services to improve functioning, ensure safety and reduce risk of future hospitalizations discussed at length. Benefits of the structure and socialization provided by an adult medical day program emphasized. Pt. expressed understanding of the above. Discussed with Family/SO: No Was Patient/Family/SO present at Treatment Team Meeting: Yes
[2018-04-11 07:24] LABS: T4 8.39 ug/dl (5.5-11.0)
[2018-04-11 07:26] LABS: IRON 60 ug/dL (37-170)
[2018-04-11 07:44] LABS: % IRON SATURATION 23 % (20-55); TOTAL IRON BINDING CAPACITY 264 ug/dL (250-450)
--- NOTE | 2018-04-11 08:45 | CARD ---
APPROVED REPORT Date of service: 04/10/2018 EKG Measurement Heart [id number] <Conclusion> Normal sinus rhythm Left axis deviation Abnormal ECG
[2018-04-11] MEDS ORDERED: Albuterol HFA 90 mcg/actuation (8 g) IH PRN (09:20)
--- NOTE | 2018-04-11 11:24 | PCM.PSYCH ---
Initial Psychiatric Evaluation - Initial Psychiatric Evaluation Type of Admission: Voluntary Legal Status: Capacity Chief Complaint (in patient's own words): Depression Patient's Reaction to Hospitalization: HPI: 63 yo female w/ h/o depression, presents w/ worsening depression, isolating herself in her room, anhedonia, excessive sleep and poor appetite, in the context of intermittent compliance with medications. She denies acute AH/VH/SI/HI. PMHx: HTN, HLD, Hypothyroid, Seasonal Allergies, CAD, GERD PMHx: History of depression w/ psychosis and past psychiatric hospitalization to [facility] and [facility] [place]. ALL: PCN SHx: From [place]; lives w/ family, denies drugs/etoh/cig use Current Medications: Active Medications Generic Name Dose Route Start Last Admin Trade Name Freq PRN Reason Stop Dose Admin Acetaminophen 650 mg 04/10/18 20:59 Tylenol 325mg Tab PO Q4 PRN Pain, moderate (4-7) Al Hydrox/Mg Hydrox/Simethicone 30 ml 04/10/18 20:59 Maalox Plus 30 Ml PO Q4 PRN Dyspepsia Albuterol 2 puff 04/11/18 09:20 Ventolin Hfa 90 Mcg/Actuation (8 G) IH Q6 PRN sob Bismuth Subsalicylate 524 mg 04/10/18 20:59 Pepto-Bismol PO Q4 PRN Diarrhea Clonidine HCl 0.3 mg 04/11/18 09:30 04/11/18 09:57 Catapres PO 0.3 mg DAILY DUNG Administration Clopidogrel Bisulfate 75 mg 04/11/18 09:30 04/11/18 09:57 Plavix PO 75 mg DAILY DUNG Administration Doxepin HCl 50 mg 04/11/18 22:00 Sinequan PO HS DUNG Famotidine 40 mg 04/11/18 09:30 04/11/18 10:02 Pepcid PO 40 mg DAILY DUNG Administration Loratadine 10 mg 04/11/18 09:30 04/11/18 09:57 Claritin PO 10 mg DAILY DUNG Administration Lorazepam 0.5 mg 04/10/18 20:59 Ativan PO 04/24/18 21:00 HS PRN Insomnia Lorazepam 0.5 mg 04/10/18 20:59 Ativan PO 04/24/18 21:00 Q6 PRN Anixety/Agitation Magnesium Hydroxide 30 ml 04/10/18 20:59 Milk Of Magnesia PO HS PRN Constipation Risperidone 4 mg 04/11/18 22:00 Risperdal Tab PO HS [facility] Past Psychiatric History - Past Psychiatric History Previous Treatment History: Inpatient Pertinent Medical Hx (Current Medical&Sleep Prob, Allergies): Allergies Allergy/AdvReac Type Severity Reaction Status Date / Time Penicillins Allergy ANAPHYLAXIS Verified 04/10/18 13:21 Irbesartan [Avapro] 300 mg PO DAILY 12/11/17 Levothyroxine [Synthroid] 100 mcg PO DAILY 12/11/17 Loratadine [Claritin] 10 mg PO DAILY 12/11/17 cloNIDine [Catapres] 0.3 mg PO DAILY 12/11/17 Albuterol HFA [Ventolin HFA 90 mcg/actuation (8 g)] 1 puff IH Q6 PRN 04/10/18 Nitroglycerin [Nitrostat] 0.4 mg SL PRN 04/10/18 Clopidogrel [Plavix] 75 mg PO DAILY 04/11/18 Doxepin [Sinequan] 50 mg PO HS 04/11/18 Famotidine [Pepcid] 40 mg PO DAILY 04/11/18 risperiDONE [RisperDAL] 4 mg PO HS 04/11/18 Review of Systems - Psychiatric Psychiatric: As Per HPI, Abnormal Sleep Pattern, Anxiety, Behavioral Changes, Change in Appetite, Depression, Difficulty Concentrating, Memory Loss Mental Status Examination - Personal Presentation Personal Presentation: Looks stated age - Affect Affect: Constricted, Depressed - Motor Activity Motor Activity: Calm - Reliability in Providing Information Reliability in Providing Information: Fair - Speech Speech: Coherent - Mood Mood: Anxious - Formal Thought Process Formal Thought Process: No Impairment - Obsessions/Compulsions Obsessions: No Compulsions: No - Cognitive Functions Orientation: Person, Place, Situation, Time Estimate of Intelligence: Average Judgement: Intact, as evidence by: Insight regarding need for hospitalization Memory: Recent intact, as evidence by: Ability to recall events of the day - Risk Risk: Diminished functioning - Strength & Assets Inventory Strength & Assets Inventory: Family support, Cooperative - Limitations Limitations: Decreased memory, recent DSM 5 DX - DSM 5 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
--- NOTE | 2018-04-11 17:15 | CP.PCM.CON ---
History of Present Illness - History of Present Illness History of Present Illness: Patient is a 63 yo female with a h/o depression, presents with worsening depression, isolating herself in her room, anhedonia, excessive sleep and poor appetite, in the context of intermittent compliance with medications. She denies acute AH/VH/SI/HI. No other symptoms offered at this time. Hospitalist team consulted for medical management PMHx: HTN, Hypothyroid, CAD History of depression w/ psychosis and past psychiatric hospitalization to [facility] and [facility] [place]. ALL: PCN SHx: From [place]; lives w/ family, denies drugs/etoh/cig use Review of Systems - Review of Systems All systems: reviewed and no additional remarkable complaints except Past Patient History - Infectious Disease Hx of Infectious Diseases: None - Tetanus Immunizations Tetanus Immunization: Unknown - Past Medical History & Family History Past Medical History?: Yes - Past Social History Smoking Status: Former Smoker - CARDIAC Hx Hypertension: Yes - PULMONARY Hx Asthma: Yes Hx Chronic Obstructive Pulmonary Disease (COPD): Yes - NEUROLOGICAL HX Cerebrovascular Accident: No Hx Seizures: No - HEENT Hx HEENT Problems: No - RENAL Hx Chronic Kidney Disease: No - ENDOCRINE/METABOLIC Hx Hypothyroidism: Yes - HEMATOLOGICAL/ONCOLOGICAL Hx Cancer: No Hx Human Immunodeficiency Virus (HIV): No - INTEGUMENTARY Hx Dermatological Problems: No - MUSCULOSKELETAL/RHEUMATOLOGICAL Hx Musculoskeletal Disorders: No Hx Falls: No - GASTROINTESTINAL Hx Gastrointestinal Disorders: No - GENITOURINARY/GYNECOLOGICAL Hx Sexually Transmitted Disorders: No - PSYCHIATRIC Hx Anxiety: Yes Hx Depression: Yes - SURGICAL HISTORY Hx Surgeries: Yes Hx Tubal Ligation: Yes Other/Comment: b/l cyst removal from breasts - ANESTHESIA Hx Anesthesia: Yes Hx Anesthesia Reactions: No Hx Malignant Hyperthermia: No Meds Allergies/Adverse Reactions: Allergies Allergy/AdvReac Type Severity Reaction Status Date / Time Penicillins Allergy ANAPHYLAXIS Verified 04/10/18 13:21 - Medications Medications: Current Medications Acetaminophen (Tylenol 325mg Tab) 650 mg PO Q4 PRN PRN Reason: Pain, moderate (4-7) Last Admin: 04/11/18 14:08 Dose: 650 mg Al Hydrox/Mg Hydrox/Simethicone (Maalox Plus 30 Ml) 30 ml PO Q4 PRN PRN Reason: Dyspepsia Albuterol (Ventolin Hfa 90 Mcg/Actuation (8 G)) 2 puff IH Q6 PRN PRN Reason: sob Bismuth Subsalicylate (Pepto-Bismol) 524 mg PO Q4 PRN PRN Reason: Diarrhea Clonidine HCl (Catapres) 0.3 mg PO DAILY [facility] Last Admin: 04/11/18 09:57 Dose: 0.3 mg Clopidogrel Bisulfate (Plavix) 75 mg PO DAILY [facility] Last Admin: 04/11/18 09:57 Dose: 75 mg Famotidine (Pepcid) 40 mg PO DAILY [facility] Last Admin: 04/11/18 10:02 Dose: 40 mg Levothyroxine Sodium (Synthroid) 100 mcg PO DAILY@0630 [facility] Loratadine (Claritin) 10 mg PO DAILY [facility] Last Admin: 04/11/18 09:57 Dose: 10 mg Lorazepam (Ativan) 0.5 mg PO HS PRN PRN Reason: Insomnia Stop: 04/24/18 21:00 Lorazepam (Ativan) 0.5 mg PO Q6 PRN PRN Reason: Anixety/Agitation Stop: 04/24/18 21:00 Magnesium Hydroxide (Milk Of Magnesia) 30 ml PO HS PRN PRN Reason: Constipation Mirtazapine (Remeron) 45 mg PO HS DUNG Risperidone (Risperdal Tab) 4 mg PO HS [facility] Physical Exam - Constitutional Appears: Well, Non-toxic, No Acute Distress - Head Exam Head Exam: NORMAL INSPECTION - Eye Exam Eye Exam: EOMI, PERRL - ENT Exam ENT Exam: Mucous Membranes Moist - Respiratory Exam Respiratory Exam: Clear to Auscultation Bilateral, NORMAL BREATHING PATTERN - Cardiovascular Exam Cardiovascular Exam: REGULAR RHYTHM, +S1, +S2 - GI/Abdominal Exam GI & Abdominal Exam: Normal Bowel Sounds, Soft - Neurological Exam Neurological exam: Alert, CN II-XII Intact, Oriented x3 Results - Vital Signs Recent Vital Signs: Last Vital Signs Temp 98.2 F 04/11/18 16:05 Pulse 73 04/11/18 16:05 Resp 18 04/11/18 16:05 BP 110/66 04/11/18 16:05 Pulse Ox 99 04/11/18 01:20 - Labs Result Diagrams: 04/10/18 17:15 04/10/18 17:15 Labs: Laboratory Results - last 24 hr 04/10/18 04/10/18 04/10/18 17:15 17:15 20:27 WBC 7.8 RBC 4.91 Hgb 13.3 D Hct 40.4 MCV 82.3 MCH 27.2 MCHC 33.0 RDW 14.9 H Plt Count 387 MPV 8.8 Neut % (Auto) 63.3 Lymph % (Auto) 25.6 Cook % (Auto) 8.0 Eos % (Auto) 2.0 Baso % (Auto) 1.1 Neut # (Auto) 4.9 Lymph # (Auto) 2.0 Cook # (Auto) 0.6 Eos # (Auto) 0.2 Baso # (Auto) 0.1 Sodium 140 Potassium 3.5 L Chloride 108 H Carbon Dioxide 23 Anion Gap 13 BUN 12 Creatinine 0.8 Est GFR ( Amer) > 60 Est GFR (Non-Af Amer) > 60 Random Glucose 106 H Hemoglobin A1c Calcium 9.5 Iron TIBC % Saturation Ferritin Total Bilirubin 0.3 AST 20 ALT 27 Alkaline Phosphatase 58 Total Protein 7.6 Albumin 4.1 Globulin 3.4 Albumin/Globulin Ratio 1.2 Triglycerides Cholesterol LDL Cholesterol Direct HDL Cholesterol Vitamin B12 Folate Free T4 Thyroxine (T4) TSH 3rd Generation Urine Color Yellow Urine Clarity Cloudy Urine pH 6.0 Ur Specific [place] 1.025 Urine Protein 100 Urine Glucose (UA) Neg Urine Ketones Negative Urine Blood Negative Urine Nitrate Negative Urine Bilirubin Negative Urine Urobilinogen 1.0 Ur Leukocyte Esterase Large Urine RBC (Auto) 3 Urine Microscopic WBC 98 H Ur Squamous Epith Cells 4 Urine Bacteria Rare Hyaline Casts 0-2 Urine Opiates Screen Urine Methadone Screen Ur Barbiturates Screen Ur Phencyclidine Scrn Ur Amphetamines Screen U Benzodiazepines Scrn U Oth Cocaine Metabols U Cannabinoids Screen 04/10/18 04/11/18 04/11/18 20:27 06:45 06:45 WBC RBC Hgb Hct MCV MCH MCHC RDW Plt Count MPV Neut % (Auto) Lymph % (Auto) Cook % (Auto) Eos % (Auto) Baso % (Auto) Neut # (Auto) Lymph # (Auto) Cook # (Auto) Eos # (Auto) Baso # (Auto) Sodium Potassium Chloride Carbon Dioxide Anion Gap BUN Creatinine Est GFR ( Amer) Est GFR (Non-Af Amer) Random Glucose Hemoglobin A1c 6.1 Calcium Iron TIBC % Saturation Ferritin 35.0 Total Bilirubin AST ALT Alkaline Phosphatase Total Protein Albumin Globulin Albumin/Globulin Ratio Triglycerides 139 D Cholesterol 121 LDL Cholesterol Direct 53 HDL Cholesterol 34 Vitamin B12 266 Folate 5.0 Free T4 Thyroxine (T4) 8.39 TSH 3rd Generation 2.45 Urine Color Urine Clarity Urine pH Ur Specific [place] Urine Protein Urine Glucose (UA) Urine Ketones Urine Blood Urine Nitrate Urine Bilirubin Urine Urobilinogen Ur Leukocyte Esterase Urine RBC (Auto) Urine Microscopic WBC Ur Squamous Epith Cells Urine Bacteria Hyaline Casts Urine Opiates Screen Negative Urine Methadone Screen Negative Ur Barbiturates Screen Negative Ur Phencyclidine Scrn Negative Ur Amphetamines Screen Negative U Benzodiazepines Scrn Negative U Oth Cocaine Metabols Negative U Cannabinoids Screen Negative 04/11/18 04/11/18 06:45 06:45 WBC RBC Hgb Hct MCV MCH MCHC RDW Plt Count MPV Neut % (Auto) Lymph % (Auto) Cook % (Auto) Eos % (Auto) Baso % (Auto) Neut # (Auto) Lymph # (Auto) Cook # (Auto) Eos # (Auto) Baso # (Auto) Sodium Potassium Chloride Carbon Dioxide Anion Gap BUN Creatinine Est GFR ( Amer) Est GFR (Non-Af Amer) Random Glucose Hemoglobin A1c Calcium Iron 60 TIBC 264 % Saturation 23 Ferritin Total Bilirubin AST ALT Alkaline Phosphatase Total Protein Albumin Globulin Albumin/Globulin Ratio Triglycerides Cholesterol LDL Cholesterol Direct HDL Cholesterol Vitamin B12 Folate Free T4 1.50 Thyroxine (T4) TSH 3rd Generation Urine Color Urine Clarity Urine pH Ur Specific [place] Urine Protein Urine Glucose (UA) Urine Ketones Urine Blood Urine Nitrate Urine Bilirubin Urine Urobilinogen Ur Leukocyte Esterase Urine RBC (Auto) Urine Microscopic WBC Ur Squamous Epith Cells Urine Bacteria Hyaline Casts Urine Opiates Screen Urine Methadone Screen Ur Barbiturates Screen Ur Phencyclidine Scrn Ur Amphetamines Screen U Benzodiazepines Scrn U Oth Cocaine Metabols U Cannabinoids Screen Assessment & Plan - Assessment and Plan (Free Text) Assessment: A/P: Hypertension - Controlled. Continue with current therapy Hypothyroid - thyroid panel reviewed and wnl. Resume home medication with Synthr oid CAD - no active chest pain. Resume Plavix and ARB Rest of care as per Psych.
[2018-04-12] MEDS: Levothyroxine 100 MCG TAB PO SCH (07:04)
--- NOTE | 2018-04-12 10:41 | PCM.PYCHPN ---
Psychiatric Progress Note - Psychiatric Progress Note Patient seen today, length of contact: Pt evaluated, case discussed w/ team, chart reviewed Patient Chief Complaint: Depression Problems Identified/Issues Discussed: Pt reports that her mood has improved. She denies acute AH/VH/SI/HI. She states that she wants to be discharged from the hospital and submitted a 48 hr letter. Medication Change: No Medical Record Reviewed: Yes Consults ordered or reviewed: Medicine consult Mental Status Examination - Cognitive Function Orientation: Person, Place, Situation, Time Memory: Intact Association: WNL Fund of Knowledge: WNL - Mood Mood: Neutral - Affect Affect: Constricted - Speech Speech: Soft - Formal Thought Process Formal Thought Process: No Impairment Psychotic Thoughts and Behaviors: No AH/VH/paranoia/delusions - Suicidal Ideation Suicidal Ideation: No - Homicidal Ideation Homicidal Ideation: No Goal/Treatment Plan - Goal/Treatment Plan Need for Continued Stay: Discharge may exacerbated symptoms Progress Toward Problem(s) and Goals/Treatment Plan: Major Depressive Disorder w/ Psychotic Features -Continue Remeron and Risperdal -Individual and group therapy -Psychoeducation -Disposition planning- will observe overnight for safety and likely discharge tomorrow as she does not meet criteria for involuntary psychiatric commitment at this time Estimated Date of D/C: 04/13/18
--- NOTE | 2018-04-13 08:24 | PCM.PYCHDC ---
Mental Status Examination - Mental Status Examination Orientation: Person, Place, Situation, Time Memory: Intact Mood: Neutral Affect: Broad Speech: Appropriate Attention: WNL Association: WNL Fund of Knowledge: WNL Formal Thought Process: No Impairment Description of patient's judgement and insight: Fair I/J Psychotic Thoughts and Behaviors: No AH/VH/paranoia/delusions Suicidal Ideation: No Current Homicidal Ideation?: No Discharge Summary - Discharge Note Reason for Hospitalization: HPI: 63 yo female w/ h/o depression, presents w/ worsening depression, isolating herself in her room, anhedonia, excessive sleep and poor appetite, in the context of intermittent compliance with medications. She denies acute AH/VH/SI/HI. PMHx: HTN, HLD, Hypothyroid, Seasonal Allergies, CAD, GERD PMHx: History of depression w/ psychosis and past psychiatric hospitalization to [facility] [place] [facility] [place]: PCN SHx: From [place]; lives w/ family, denies drugs/etoh/cig use Consultations:: List each consultation separately and include: 1. Reason for request. 2. Findings. 3. Follow-up Consultations: Medicine consult Summary of Hospital Course include:: 1. Description of specific treatment plan utilized for patients during their course of treatmen. 2. Summarize the time- course for resolution of acute symptoms and/or regressed behaviors. 3. Describe issues identified and worked on during hospitalization. 4. Describe medication utilized. 5. Describe medical problems identified and treated. 6. Reassessment of suicide risk Summary of Hospital Course: Patient was admitted to the psychiatry unit. Individual and group therapy were provided. Patient was stabilized on Risperdal and Remeron. Psychoeducation provided on the importance of compliance with treatment and medications. She submitted a 48 hr letter requesting to be discharged and will be discharged as she does not meet criteria for involuntary commitment at this time. - Diagnosis (1) Major depressive disorder with psychotic features Current Visit: No Status: Chronic - Final Diagnosis (DSM 5) Condition upon Discharge: STABLE DSM 5: Major Depressive Disorder w/ Psychotic Features Disposition: HOME/ ROUTINE Follow-up Treatment Plan: Major Depressive Disorder w/ Psychotic Features -Continue Remeron and Risperdal -Discharge to home with outpatient follow-up -Psychoeducation provided to patient and her family Prescriptions/Medication Reconciliation: Levothyroxine [Synthroid] 100 mcg PO DAILY@30 #30 tab Mirtazapine [Remeron] 45 mg PO HS #90 tab risperiDONE [RisperDAL Tab] 4 mg PO HS #60 tab - Smoking Cessation Smoking Cessation Medication prescribed: No Reason for not providing: Not indicated - Antipsychotic Medications Pt discharged on 2 or more routine antipsychotic medications: No
[2018-04-13] MEDS: Levothyroxine 100 MCG TAB PO SCH (08:28)
[2018-04-13 17:05] VITALS: BP 140/80; PULSE 74; RESP 18; TEMP 98.1
== END 2018-04-13 17:24 | disposition home or self-care (01) | DRG 751 ==
LOC: H.ER 12:39 → H.STEP 17:07
PROVIDERS: ADMIT Psychiatry & Neurology Psychiatry; ATTEND Psychiatry & Neurology Psychiatry
PROC: GZHZZZZ Group Psychotherapy (ICD-10-PCS; principal; 2018-04-10)
PROC: GZ58ZZZ Individual Psychotherapy, Cognitive-Behavioral (ICD-10-PCS; 2018-04-10)
DX: F32.3 Major depressive disorder, single episode, severe with psychotic features (principal); Z91.14 Patient's other noncompliance with medication regimen; F41.9 Anxiety disorder, unspecified; I10 Essential (primary) hypertension; I25.10 Atherosclerotic heart disease of native coronary artery without angina pectoris; E03.9 Hypothyroidism, unspecified; E78.5 Hyperlipidemia, unspecified; J44.9 Chronic obstructive pulmonary disease, unspecified; K21.9 Gastro-esophageal reflux disease without esophagitis; Z87.891 Personal history of nicotine dependence; Z79.02 Long term (current) use of antithrombotics/antiplatelets; Z88.0 Allergy status to penicillin